=== PATIENT | male | born 1935 | race Caucasian/White ===

== ENCOUNTER 2017-01-28 17:13 | Observation (INO) ==
--- NOTE | 2017-01-28 17:29 | Emergency Department Note ---
Disposition Clinical Impression: Chest pain Qualifiers: Chest pain type: unspecified Qualified Code(s): R07.9 - Chest pain, unspecified Disposition: Admitted As Inpatient Condition: Fair Referrals: Wen Baires MD [Primary Care Provider] - Forms: ED Satisfaction Letter Time of Disposition: 18:21 Chest Pain HPI - General Chief Complaint: ED Chest Pain Stated Complaint: Chest pain/Multiple Complaints Time Seen by Provider: 01/28/17 17:22 Source: patient, family Mode of arrival: ambulatory Limitations: no limitations Vital Signs Reviewed: Yes Nursing Notes Reviewed: Yes - History of Present Illness HPI Narrative: 81-year-old male with a history of previous stent 3 in 2013 who comes in with intermittent chest pain says it'll get real heavy in his chest and then it'll get better it's been going on for last couple of days. Also states he has leg pain related to nerve damage that he's had for quite some time. Eyes any swelling or redness of the lower extremities. Pt complaint: chest pain Onset (ago): day(s) Duration: intermittent Onset: during rest Pain Location: substernal, left chest Severity scale (1-10): 6 Quality: aching, heaviness Improves with: nothing Worsens with: exertion Associated symptoms: Denies: fever, cough - Related Data Allergies Allergy/AdvReac Type Severity Reaction Status Date / Time celecoxib [From Celebrex] Allergy See Verified 01/28/17 17:18 Comments codeine Allergy See Verified 01/28/17 17:18 Comments propoxyphene Allergy See Verified 01/28/17 17:18 Comments Uglxerr-Yij-Jkj Reductase Allergy See Verified 01/28/17 17:18 Inhibitor Comments [Statins] Sulfa (Sulfonamide Allergy See Verified 01/28/17 17:18 Antibiotics) Comments All systems ED: reviewed and negative except as stated. Constitutional: Denies: fever, chills, weakness, weight change Eyes: Denies: eye pain, eye discharge, vision change ENT ED: Denies: ear pain, throat pain, dental pain, hearing loss, epistaxis, congestion, dysphagia Cardiovascular: Reports: chest pain. Denies: palpitations, dyspnea on exertion , edema, syncope Respiratory: Denies: cough, dyspnea, wheezes, hemoptysis, stridor Gastrointestinal: Denies: abdominal pain, nausea, vomiting, diarrhea, constipation, hematemesis, melena, hematochezia Genitourinary: Denies: urgency, dysuria, frequency, hematuria Musculoskeletal: Denies: back pain, neck pain, arthralgia, myalgia Integumentary: Denies: rash, abrasion, lesions Neurological: Denies: headache, weakness, numbness, paresthesias, confusion, abnormal gait, vertigo Psychiatric: Denies: anxiety, depression, suicidal thoughts, homicidal thoughts , auditory hallucinations, visual hallucinations Endocrine: Denies: fatigue Hematological/Lymphatic: Denies: easy bleeding, easy bruising Allergic/Immunologic: Denies: facial swelling, urticaria Chest Pain PMH - Past Medical History Medical history: Reports: diabetes, hyperlipidemia, hypertension, liver disease , myocardial infarction Psychiatric history: Reports: no psych history - Social History Smoking Status: Never smoker Alcohol use: Reports: none Drug use: Reports: none Physical Exam - General Limitations: no limitations General appearance: alert, in no apparent distress - Head Head exam: atraumatic, normocephalic, normal inspection - Eye Eye exam: Present: normal appearance, PERRL, EOMI - ENT ENT exam: normal exam, normal oropharynx, mucous membranes moist - Neck Neck exam: Present: normal inspection, full ROM, trachea midline - Chest Chest inspection: Present: normal inspection, symmetric chest wall rise - Respiratory Respiratory exam: Present: normal lung sounds bilaterally - Cardiovascular Cardiovascular exam: Present: regular rate, normal rhythm, normal heart sounds - Abdominal Exam Abdominal exam: Present: soft, Non-Tender. Absent: tenderness, distention, guarding, rebound, rigidity - Extremities Exam Extremities exam: Present: normal inspection, full ROM. Absent: tenderness, pedal edema - Expanded Lower Extremity Exam Neurovascular/Tendon exam: Absent: motor deficit, sensory deficit, tendon deficit Gait: observed and normal - Back Exam Back exam: Present: normal inspection, full ROM. Absent: tenderness - Neurological Exam Neurological exam: Present: alert, oriented X3 - Psychiatric Psychiatric exam: Present: normal affect, normal mood - Skin Skin exam: Present: warm, dry, intact, normal color Course - Reevaluation(s) Reevaluation #1: 81-year-old previous history of heart disease comes in complaining of intermittent chest pain for the last several days. Workup is negative here in the ER however with his risk factors whirl go ahead and admit. Time: 18:20 - Consultations Consultation #1: Discussed with , admit. Time: 18:20 Vital Signs Temperature 99.5 F 01/28/17 17:15 Pulse Rate 100 01/28/17 17:15 Respiratory Rate 20 01/28/17 17:15 Blood Pressure 146/74 01/28/17 17:15 O2 Sat by Pulse Oximetry 94 01/28/17 17:15 Temperature 99.5 F 01/28/17 17:15 Pulse Rate 99 01/28/17 17:30 Respiratory Rate 22 01/28/17 17:30 Blood Pressure 148/76 01/28/17 17:30 O2 Sat by Pulse Oximetry 94 01/28/17 17:30 Oxygen Delivery Oxygen Delivery Room Air Chest Pain - Lab Data Lab results reviewed: Yes I reviewed the patient's lab results. Result diagrams: 01/28/17 17:40 01/28/17 17:40 Lab Results 01/28/17 01/28/17 01/28/17 Range/Units 17:40 17:40 17:40 WBC 6.5 (4.3-11.1) K/mcL RBC 3.42 L (4.19-5.50) M/mcL Hgb 11.8 L (12.9-16.9) g/dL Hct 33.1 L (37.5-50.1) % MCV 96.8 (83.0-100.0) fL MCH 34.5 H (28.0-33.3) pg MCHC 35.6 H (31.6-35.5) g/dL RDW 12.6 (11.5-14.5) % Plt Count 124 L (140-400) K/mcL MPV 10.1 (9.4-12.4) fL Immature Gran % 0.2 (0-4) % Seg Neutrophils % 73.4 % Lymphocytes % 10.9 % Monocytes % 11.8 % Eosinophils % 3.1 % Basophils % 0.6 % Neutrophils # 4.7 (1.6-8.9) K/mcL Lymphocytes # 0.7 (0.6-4.6) K/mcL Monocytes # 0.8 (0.0-1.3) K/mcL Eosinophils # 0.2 (0.0-0.6) K/mcL Basophils # 0.0 (0.0-0.2) K/mcL Immature Plt Fraction 5.6 (1.1-6.1) % PT 11.8 (9.4-12.1) Seconds INR 1.1 APTT 29.0 (26.0-36.0) Seconds Sodium (136-145) mEq/L Potassium (3.5-4.5) mEq/L Chloride (98-109) mEq/L Carbon Dioxide (19-29) mEq/L BUN (8-26) mg/dL Creatinine (0.72-1.25) mg/dL Est GFR ( Amer) (> 60) Est GFR (Non-Af Amer) (> 60) BUN/Creatinine Ratio (6-26) Glucose (70-99) mg/dL Calculated Osmolality (280-300) Calcium (8.6-10.8) mg/dL Troponin I (0-0.03) ng/mL B-Natriuretic Peptide 25 (0-100) pg/mL 01/28/17 01/28/17 Range/Units 17:40 17:40 WBC (4.3-11.1) K/mcL RBC (4.19-5.50) M/mcL Hgb (12.9-16.9) g/dL Hct (37.5-50.1) % MCV (83.0-100.0) fL MCH (28.0-33.3) pg MCHC (31.6-35.5) g/dL RDW (11.5-14.5) % Plt Count (140-400) K/mcL MPV (9.4-12.4) fL Immature Gran % (0-4) % Seg Neutrophils % % Lymphocytes % % Monocytes % % Eosinophils % % Basophils % % Neutrophils # (1.6-8.9) K/mcL Lymphocytes # (0.6-4.6) K/mcL Monocytes # (0.0-1.3) K/mcL Eosinophils # (0.0-0.6) K/mcL Basophils # (0.0-0.2) K/mcL Immature Plt Fraction (1.1-6.1) % PT (9.4-12.1) Seconds INR APTT (26.0-36.0) Seconds Sodium 135 L (136-145) mEq/L Potassium 4.2 (3.5-4.5) mEq/L Chloride 100 (98-109) mEq/L Carbon Dioxide 26 (19-29) mEq/L BUN 24 (8-26) mg/dL Creatinine 1.39 H (0.72-1.25) mg/dL Est GFR ( Amer) 59 L (> 60) Est GFR (Non-Af Amer) 49 L (> 60) BUN/Creatinine Ratio 17 (6-26) Glucose 160 H (70-99) mg/dL Calculated Osmolality 287 (280-300) Calcium 9.0 (8.6-10.8) mg/dL Troponin I 0.02 (0-0.03) ng/mL B-Natriuretic Peptide (0-100) pg/mL - Radiology Data Radiology results reviewed: Yes I reviewed the patient's radiology results. Chest X-Ray 01/28/17 17:26 IMPRESSION: Perihilar airspace disease with indistinctness the pulmonary vasculature suggesting pulmonary edema. These findings are likely accentuated by low lung volumes. D/ / Sameera Dahl Cha, MD / Sameera Dahl Cha, MD Interpreting Provider: Sameera Dahl Cha, MD - EKG Data EKG attestation: Yes I reviewed and interpreted this EKG. EKG shows normal: sinus rhythm Rate: normal Rhythm: NSR Interpretation: no acute changes Heart Score - Score History: Moderately Suspicious EKG: Non Specific repolarisation Disturbance Age: Greater than 65 Risk Factors: Equal/Greater than 3 risk factor or history of atherosclerotic disease Troponin: Less than normal limit HEART Score Total: 6
[2017-01-28 17:48] LABS: Basophils % 0.6 %; Eosinophils # 0.2 K/mcL (0.0-0.6); Eosinophils % 3.1 %; Hematocrit 33.1 % (37.5-50.1); Hemoglobin 11.8 g/dL (12.9-16.9); Immature Granulocytes % 0.2 % (0-4); Immature Platelets 5.6 % (1.1-6.1); Lymphocytes # 0.7 K/mcL (0.6-4.6); Lymphocytes % 10.9 %; Mean Corpuscular HGB Conc 35.6 g/dL (31.6-35.5); Mean Corpuscular Hemoglobin 34.5 pg (28.0-33.3); Mean Corpuscular Volume 96.8 fL (83.0-100.0); Mean Platelet Volume 10.1 fL (9.4-12.4); Monocytes # 0.8 K/mcL (0.0-1.3); Monocytes % 11.8 %; Neutrophils # 4.7 K/mcL (1.6-8.9); Platelet Count 124 K/mcL (140-400); Red Blood Count 3.42 M/mcL (4.19-5.50); Red Cell Distribution Width 12.6 % (11.5-14.5); Segmented Neutrophils % 73.4 %
[2017-01-28 17:53] LABS: INR 1.1; Prothrombin Time 11.8 Seconds (9.4-12.1)
[2017-01-28 17:59] LABS: Potassium 4.2 mEq/L (3.5-4.5)
[2017-01-28] MEDS ORDERED: Naloxone 0.4 MG/ML INJ IVP PRN (19:38)
[2017-01-28] MEDS ORDERED: Ondansetron 4 MG/2 ML VIAL IVP PRN (19:38)
[2017-01-28] MEDS ORDERED: Acetaminophen 325 MG TABLET PO PRN ×2 (19:38→20:14)
[2017-01-28] MEDS ORDERED: Nitroglycerin 0.4 MG TAB.SUBL SL PRN (19:41)
[2017-01-28] MEDS ORDERED: *HR* Dextrose 50 % in Water (Syg) 50 ML SYRINGE IVP PRN (19:44)
[2017-01-28] MEDS ORDERED: D5% in Water 1,000 ML IVC PRN (19:44)
[2017-01-28] MEDS ORDERED: Dextrose Gel 15 GM PO PRN ×2 (19:44)
[2017-01-28] MEDS ORDERED: Ipratropium/Albuterol Neb 3 ML IH PRN (20:00)
--- NOTE | 2017-01-28 20:10 | Internal Med History&Physical ---
<Haim Payton - Last Filed: 01/28/17 21:03> Date of Encounter: 01/28/17 Time of Encounter: 19:15 Assessment and Plan (1) Chest pain Current visit: Yes Status: Acute Patient presents with chief complaint of chest pressure that has become progressively worse over the past several days. He reports it sometimes radiates to his right neck. Patient has history of CA in 2013 with placement of three stents. He also has cardiac risk factors of HTN, HLD, and DM. EV echocardiogram ordered. Troponins to be trended x2. Will place patient NPO after midnight for ordered nuclear pharm stress test, but will hold stress test if troponins are positive. Will consider cardiology consult based on test results. Qualifiers: Chest pain type: unspecified Qualified Code(s): R07.9 - Chest pain, unspecified (2) Pedal edema Current visit: Yes Status: Acute Patient presents with mild bilateral non-pitting pedal edema. Will continue patient's HCTZ and order fluid restriction of 1.5L daily. Monitor I&O and daily weight. (3) SOB (shortness of breath) Current visit: Yes Status: Acute Patient presents with complaint of SOB related to current chest pressure over the past several days. Supplemental O2 ordered with titration if SpO2 <92% as well as continuous SpO2 monitoring. DuoNebs Q4 PRN ordered. Monitor patient and vital signs. (4) Febrile Current visit: Yes Status: Acute Patient presents with fever upon admission. While in ED, patient's temperature was 99.5F. After admission to floor, patient's temperature was recorded at 102.2F. Tylenol 650 mg for fever/pain ordered due to patient's current renal status (GFR = 49). Blood cultures x2 and urine culture ordered stat. Currently, patient's WBC is 6.5 on admission. Will order CBC and lactic acid stat. Patient to be monitored closely. Qualifiers: Fever type: due to other condition Qualified Code(s): R50.81 - Fever presenting with conditions classified elsewhere (5) HTN (hypertension) Current visit: Yes Status: Chronic Patient presents with history of chronic hypertension. Will continue patient's Metoprolol XL and HCTZ. Monitor patient and vital signs. Qualifiers: Hypertension type: essential hypertension Qualified Code(s): I10 - Essential (primary) hypertension (6) HLD (hyperlipidemia) Current visit: Yes Status: Chronic Patient presents with history of chronic hyperlipidemia. Patient reports he is allergic to all statin drugs and is currently not taking any statin medications. Will order lipid panel. Qualifiers: Hyperlipidemia type: pure hypercholesterolemia Qualified Code(s): E78.00 - Pure hypercholesterolemia, unspecified; E78.0 - Pure hypercholesterolemia (7) Diabetes Current visit: Yes Status: Chronic Patient presents with history of chronic diabetes that is controlled by diet and oral hyperglycemics. Blood glucose monitoring ACHS. Will hold patient's oral hyperglycemic medication and order low-dose insulin correction dosing. A1C ordered. Qualifiers: Diabetes mellitus type: type 2 Diabetes mellitus complication status: with neurologic complications Diabetes mellitus complication detail: with unspecified neuropathy Diabetes mellitus intermediate designer insulin use: without intermediate designer use Qualified Code(s): E11.40 - Type 2 diabetes mellitus with diabetic neuropathy, unspecified (8) Prostate hypertrophy Current visit: Yes Status: Acute Patient has history of chronic prostate hypertrophy and issues. He reports he had a previous procedure done but can't recall what the procedure was. He also states that he now experiences urinary urgency and incontinence. Patient states he is scheduled to see Dr. Escobar in three weeks. Patient instructed to keep his appointment and discuss the urinary issues with Dr. Escobar. Will monitor patient for urinary incontinence while inpatient. (9) DVT prophylaxis Current visit: Yes Status: Acute Patient to be placed on DVT prophylaxis due to admission protocol and current bedrest status. Heparin 5,000 units SQ Q8 ordered. Internal Medicine - H&P: HPI Chief complaint: Chest pressure Admitted From: Emergency Dept Plans for Post Hospital Care: Home History of present illness: Mr. Dudley is a 81 year old male who presents from the ED with chief complaint of chest pressure that has been occurring for the past several weeks and has become progressively worse over the past several days. Patient reports the feeling as chest pressure with some radiation to his right neck. Mr. Dudley reports he has some SOB and pedal edema which he was taking Lasix for but stopped after it caused GI issues for him. He states he let his PCP know about stopping the medication. Patient denies any recent illness, fever, chills , nausea, vomiting, diarrhea, hematemesis, melena, hematochezia, generalized weakness, dizziness, or lightheadedness. Patient has a history of diabetes controlled by oral hyperglycemics, HLD, HTN, and CA in 2013 with placement of three stents. Patient currently has mild SOB with bilateral non-pitting edema. He also reports sciatic pain from hips down to his feet which may also be neuropathy from his diabetes. He states he has prostate problems/urinary urgency and incontinence and will see Dr. Escobar in three weeks for scheduled appointment. Patient is at moderate risk for cardiac event and will be placed as observation status with orders for continuous cardiac telemetry, supplemental O2 and SpO2 monitoring, echocardiogram, troponin trending x2, and nuclear pharm stress test for the a.m. unless troponins are positive. Mr. Nolasco is to be NPO after midnight for possible stress test. After this, will follow cardiac diet with fluid restriction of 1.5L daily. Patient is currently febrile without leukocytosis, so blood and urine cultures ordered with Tylenol PRN for fever due to patient's renal function. Mr. Dudley to be falls precautions/[id number]-phfp-[id number]/bed rest with bathroom privileges due to back/ leg pain and increased risk for falls. Patient to be monitored closely. Time spent with patient >40 minutes. Past Med Surg Social Fam HX - Past Medical History Source: patient Medical history: diabetes (Controlled with oral hyperglycemics), hyperlipidemia , hypertension, myocardial infarction (2013 with placement of 3 stents) Psychiatric history: no psych history - Past Surgical History Surgical History: cholecystectomy, hip replacement, knee replacement - Social History Smoking Status: Never smoker Smokeless Tobacco Status: No Alcohol use: none Drug use: none Occupational status: retired Current living situation: Home, With Family Activity Level: Independent ambulation Recent Out of Country Travel Within the Last 8 Weeks: No Exposure or Possible Exposure to Illness During Travel: No - Family History Father Race: Family Member Ethnicity: Non- Living Status: Age at : 87 Cause of : Stroke Hx Family Cardiac Disorders: Yes (CVA) Mother Race: Family Member Ethnicity: Non- Living Status: Age at : 82 Cause of : CA Hx Family Cardiac Disorders: Yes (Angina) Hx Family Endocrine Disorder: Yes (DM) Brother Race: Family Member Ethnicity: Non- Living Status: Still Living Hx Family Genitourinary Disorders: Yes (Prostate issues) Internal Medicine - H&P: Meds Albuterol Sulfate [Ventolin Hfa] 2 puff IH Q4H PRN 01/28/17 [History] Aspirin Enteric Coated [Aspirin EC] 81 mg PO DAILY 01/28/17 [History] Clopidogrel [Plavix] 75 mg PO DAILY 01/28/17 [History] Cyanocobalamin (Vitamin B-12) [Vitamin B12] 2,000 mcg PO DAILY 01/28/17 [History ] Flaxseed Oil [[place]-3 Flaxseed Oil] 1,000 mg PO DAILY 01/28/17 [History] Isosorbide MONOnitrate (24 HR) [Imdur] 60 mg PO DAILY 01/28/17 [History] Losartan/Hydrochlorothiazide [Hyzaar 100-12.5 Tablet] 1 each PO DAILY 01/28/17 [ History] Meclizine HCl [Verticalm] 25 mg PO DAILY PRN 01/28/17 [History] Metoprolol XL (24 HR) Succ [Toprol XL] 25 mg PO DAILY 01/28/17 [History] Nitroglycerin [Nitrostat] 0.4 mg SL Q5M PRN 01/28/17 [History] [place]-3/Dha/Epa/Fish Oil [Fish Oil 1,360 mg Softgel] 1 each PO DAILY 01/28/17 [ History] Potassium Chloride [K-Tab ER] 10 meq PO BID 01/28/17 [History] Saw/Vit E/Sod [place]/Lyc/Beta/Pyg [Prostate Health Caplet] 1 each PO DAILY [History] Vit A/C/E AC/Znox/Cupric Oxide [Eye Vitamin-Minerals Tablet] 1 each PO DAILY 10/12 [History] glipiZIDE [Glucotrol] 5 mg PO BIDWM 01/28/17 [History] Allergies celecoxib [From Celebrex] Allergy (Verified 01/28/17 17:18) See Comments codeine Allergy (Verified 01/28/17 17:18) See Comments propoxyphene Allergy (Verified 01/28/17 17:18) See Comments Olvgokg-Vko-Hbl Reductase Inhibitor [Statins] Allergy (Verified 01/28/17 17:18) See Comments Sulfa (Sulfonamide Antibiotics) Allergy (Verified 01/28/17 17:18) See Comments All Systems PM: A 10-system review of systems was performed and is negative for pertinent findings except as documented above in the HPI. - Constitutional Constitutional: no chills, no fever(s), no night sweats - EENT Eyes: no change in vision, no discharge, no pain, no photophobia Ears: no ear discharge, no ear pain, no tinnitus Nose, mouth and throat: no dysphagia, no nasal discharge, no neck pain, no sore throat - Breasts Breasts: as per HPI - Cardiovascular Cardiovascular ROS IM: as per HPI, chest pain (Describes as pressure), dyspnea, edema (Mild bilateral and non-pitting pedal edema) - Respiratory Respiratory: as per HPI, cough, dyspnea - Gastrointestinal Gastrointestinal: no abdominal pain, no diarrhea, no hematemesis, no hematochezia, no melena, no nausea, no vomiting - Genitourinary Genitourinary ROS male: as per HPI, urinary incontinence, urinary urgency - Musculoskeletal Musculoskeletal ROS IM: no numbness, no tingling - Integumentary Integumentary IM: no rash, no unusual bruising - Neurological Neurological ROS: no confusion, no convulsions, no focal weakness, no numbness, no tingling, no tremor(s) - Psychiatric Psychiatric: as per HPI - Endocrine Endocrine IM: as per HPI - Hematologic/Lymphatic Hematologic/Lymphatic: no easy bruising - Allergic/Immunologic Allergic/Immunologic: as per HPI - Constitutional Vitals: Temp Pulse Resp BP Pulse Ox 99.5 F 95 20 146/70 92 01/28/17 17:15 01/28/17 18:30 01/28/17 18:47 01/28/17 18:47 01/28/17 18:30 General appearance: Present: cooperative, A&O X 3, pleasant, no acute distress, obese, answers questions appropriately - Head Head exam: Present: atraumatic, normocephalic - Eye Eye exam: Present: PERRL, conjuntiva pink, sclera anicteric Pupils: Present: PERRL - ENT ENT exam: Present: normal exam, normal external ear exam - Neck Neck exam general surgery: Present: supple, trachea midline. Absent: lymphadenopathy - Respiratory Respiratory exam: Present: CTAB. Absent: accessory muscle use, rales, rhonchi, wheezes - Cardiovascular Cardiovascular exam: Present: RRR, +S1, +S2. Absent: diastolic murmur, gallop, rubs, systolic murmur - GI/Abdominal GI/Abdominal exam: Present: normal bowel sounds, soft, no peritoneal signs. Absent: distended, tenderness - Rectal Rectal exam: Present: deferred - Additional comments: exam deferred. - Extremities Exam Extremities exam: Present: normal inspection, pedal edema, warm, radial pulses palpable and symetrical - Back Exam Additional comments: Patient has shooting pain from his lower back to his feet when sitting up for examination. - Neurological Exam Neurological exam: Present: CN II-XII intact, oriented X3, no focal deficits. Absent: pronater drift, facial droop, speech deficit - Psychiatric Psychiatric exam: Present: normal affect, normal mood - Skin Skin exam: Present: dry, intact Internal Med - H&P Results - Labs CBC & Chem 7: 01/28/17 17:40 01/28/17 17:40 - EKG Data EKG shows normal: sinus rhythm - EKG Data Prior EKG available for review: yes When compared to previous EKG: there is no significant change EKG comments: 01/28/17 20:32 EKG dated 11/18/13 shows sinus bradycardia, normal ECG except for rate. EKG dated 01/28/17 shows sinus rhythm and normal ECG. - Diagnostic Studies Chest x-ray Additional comments: Impressions Chest X-Ray 01/28/17 17:26 IMPRESSION: Perihilar airspace disease with indistinctness the pulmonary vasculature suggesting pulmonary edema. These findings are likely accentuated by low lung volumes. D/ / Sameera Dahl Cha, MD / Sameera Dahl Cha, MD Interpreting Provider: Sameera Dahl Cha, MD <Deandra Medina - Last Filed: 01/29/17 04:55> Date of Encounter: 01/28/17 Time of Encounter: 23:00 Internal Medicine - H&P: HPI History of present illness: Mr. Dudley is a 81 year old male All Systems PM: A 10-system review of systems was performed and is negative for pertinent findings except as documented above in the HPI. - Constitutional Vitals: Temp Pulse Resp BP Pulse Ox 98.4 F 53 16 125/67 100 01/29/17 02:47 01/29/17 02:47 01/29/17 02:47 01/29/17 02:47 01/29/17 02:47 Internal Med - H&P Results - Labs CBC & Chem 7: 01/28/17 21:09 01/28/17 17:40 Labs: Short CBC 01/28/17 Range/Units 21:09 WBC 6.5 (4.3-11.1) K/mcL Hgb 11.3 L (12.9-16.9) g/dL Hct 31.6 L (37.5-50.1) % Plt Count 112 L (140-400) K/mcL Neutrophils # 4.7 (1.6-8.9) K/mcL Cardiac Enzymes 01/28/17 Range/Units 23:33 Troponin I 0.00 (0-0.03) ng/mL Urine 01/28/17 Range/Units 20:15 Urine Color Yellow (Yellow) Urine Clarity Clear (Clear) Urine pH 6.5 (5.0-8.0) pH Units Ur Specific [place] 1.019 (1.010-1.025) Urine Protein 30 H (Neg-Trace) mg/dL Urine Glucose (UA) Normal (Normal) mg/dL - Attending Attestation I examined this patient and my medical decision-making was reviewed with the ETIQUETTE COACH/PA/Advanced Practice Nurse/Resident Physician. I agree with the documented findings, disposition and treatment plan as described except to the extent set forth below. Monitor serial TNI Nuclear stress test in am follow up 2D echo consider cardiology evaluation if above test are positive for any acute cardiac etiology
[2017-01-28 20:34] LABS: Bilirubin,Urine Negative (Negative); Blood,Urine Small (Negative); Clarity,Urine Clear (Clear); Color,Urine Yellow (Yellow); Glucose,Urine (UA) Normal (Normal); Ketones,Urine Negative (Negative); Leukocyte Esterase,Urine Negative (Negative); Nitrite,Urine Negative (Negative); PH,Urine 6.5 pH Units (5.0-8.0); Protein,Urine 30 mg/dL (Neg-Trace); Specific Gravity,Urine 1.019 (1.010-1.025); Urobilinogen,Urine Normal (Normal)
[2017-01-28 20:37] LABS: Bacteria,Urine None Seen per hpf (None-Few); Hyaline Casts,Urine None Seen per lpf (None-Few); Squamous Epithelial Cell,Urine Few per lpf (None-Few); WBC,Urine 0-3 per hpf (0-3)
[2017-01-28] MEDS ORDERED: Insulin LISPRO 300 UNITS/3 ML VIAL SQ SCH (21:00)
[2017-01-28] MEDS: *HR* Heparin 5,000 UNIT/ML VIAL SQ SCH (21:05)
[2017-01-28 21:20] LABS: Basophils % 0.6 %; Eosinophils # 0.2 K/mcL (0.0-0.6); Eosinophils % 2.5 %; Hematocrit 31.6 % (37.5-50.1); Hemoglobin 11.3 g/dL (12.9-16.9); Immature Granulocytes % 0.3 % (0-4); Lymphocytes # 0.7 K/mcL (0.6-4.6); Mean Corpuscular HGB Conc 35.8 g/dL (31.6-35.5); Mean Corpuscular Hemoglobin 34.5 pg (28.0-33.3); Mean Corpuscular Volume 96.3 fL (83.0-100.0); Mean Platelet Volume 10.3 fL (9.4-12.4); Monocytes # 0.8 K/mcL (0.0-1.3); Neutrophils # 4.7 K/mcL (1.6-8.9); Platelet Count 112 K/mcL (140-400); Red Blood Count 3.28 M/mcL (4.19-5.50); Red Cell Distribution Width 12.5 % (11.5-14.5); Segmented Neutrophils % 72.6 %
[2017-01-29] MEDS: *HR* Heparin 5,000 UNIT/ML VIAL SQ SCH ×2 (05:48→14:53)
[2017-01-29] MEDS ORDERED: Regadenoson 0.4 MG/5 ML SYRINGE IVP ONE (06:14)
[2017-01-29 06:58] LABS: Calcium 8.9 mg/dL (8.6-10.8); Chol/HDL Ratio 6.1 (0-4.9); Magnesium 1.8 mg/dL (1.6-2.6); Potassium 3.8 mEq/L (3.5-4.5)
[2017-01-29 07:05] LABS: Basophils % 0.5 %; Eosinophils # 0.2 K/mcL (0.0-0.6); Eosinophils % 5.5 %; Hematocrit 33.6 % (37.5-50.1); Hemoglobin 11.7 g/dL (12.9-16.9); Immature Granulocytes % 0.2 % (0-4); Lymphocytes # 0.8 K/mcL (0.6-4.6); Lymphocytes % 19.2 %; Mean Corpuscular HGB Conc 34.8 g/dL (31.6-35.5); Mean Corpuscular Hemoglobin 34.3 pg (28.0-33.3); Mean Corpuscular Volume 98.5 fL (83.0-100.0); Mean Platelet Volume 11.1 fL (9.4-12.4); Monocytes # 0.7 K/mcL (0.0-1.3); Monocytes % 16.1 %; Neutrophils # 2.4 K/mcL (1.6-8.9); Platelet Count 116 K/mcL (140-400); Red Blood Count 3.41 M/mcL (4.19-5.50); Red Cell Distribution Width 12.8 % (11.5-14.5); Segmented Neutrophils % 58.5 %
[2017-01-29] MEDS ORDERED: Isosorbide MONOnitrate (24 HR) 60 MG TAB.ER.24H PO SCH (09:00)
[2017-01-29] MEDS ORDERED: VIT E PO SCH (09:00)
[2017-01-29] MEDS ORDERED: hydroCHLOROthiazide 25 MG TABLET PO SCH (09:00)
[2017-01-29] MEDS ORDERED: SAW PO SCH (09:00)
[2017-01-29] MEDS ORDERED: Flaxseed Oil [Omega-3 Flaxseed Oil] 1,000 MG PO SCH (09:00)
[2017-01-29] MEDS ORDERED: LYC PO SCH (09:00)
[2017-01-29] MEDS ORDERED: Aspirin Enteric Coated 81 MG Tablet PO SCH (09:00)
[2017-01-29] MEDS ORDERED: OMEGA PO SCH (09:00)
[2017-01-29] MEDS ORDERED: SOD SEL PO SCH (09:00)
[2017-01-29] MEDS ORDERED: PYG PO SCH (09:00)
[2017-01-29] MEDS ORDERED: Metoprolol XL (24 HR) Succ 25 MG TAB.ER.24H PO SCH (09:00)
[2017-01-29] MEDS ORDERED: BETA PO SCH (09:00)
[2017-01-29] MEDS ORDERED: DHA PO SCH (09:00)
[2017-01-29] MEDS ORDERED: EPA PO SCH (09:00)
[2017-01-29] MEDS ORDERED: Pantoprazole 40 MG VIAL IVP SCH (09:00)
[2017-01-29] MEDS ORDERED: Cyanocobalamin (B-12) 1,000 MCG TABLET PO SCH (09:00)
[2017-01-29] MEDS ORDERED: Multivit/Ca/Min/Fe/FA 1 TAB TABLET PO SCH (09:00)
[2017-01-29] MEDS ORDERED: FISH OIL PO SCH (09:00)
[2017-01-29] MEDS: Insulin LISPRO 300 UNITS/3 ML VIAL SQ SCH (12:11)
--- NOTE | 2017-01-29 12:49 | Nuclear Medicine Stress Report ---
Regadenoson Nuclear Stress Name: Nacho Dudley Date of Study: 01/29/2017 Date: 1935 Ht: Medical Record#: [id number] Age: 81 Wt: Gender: Male Order #: [id number] Location: [facility] Room: [facility] Supervising Provider: Talha Lara CNP Reading Physician: Darren Carbajal DO, FACC, FASIL Ordering Physician: Mylene Martinez CNP Primary Care Physician: Wen Baires MD Stress Technologist: Michelle Benavides RRT Drywall Finisher Foreman: Yuri Ga Indications: Chest Pain Impression: Pharmacologic stress ECG is negative for ischemia at level of heart rate achieved. Gated EF = 61%. Small sized, mild intensity, primarily fixed basal inferoseptal defect. Wall motion appears normal. These findings are consistent with artifact. Perfusion imaging was negative for ischemia or infarct. Clinical correlation suggested. History: Hypertension Hypercholesteremia Prior PCI Stress Test Summary: Stress Test Type: Pharmacologic Regadenoson 0.4mg/5ml given IV Baseline Information: Initial Heart Rate: 56 Blood Pressure: 112/70 Stress Information: Test Terminated Due to (primary): As per protocol Maximum Blood Pressure: 110/64 Maximum Heart Rate: 84 Percent Maximum Heart Rate Achieved: 61 Double Product: 9240 METS Reached: 1 Symptoms: No chest symptoms Nuclear Summary: SPECT myocardial perfusion imaging using Tc99m Sestamibi given intravenously was performed at rest and following cardiac stress testing. The resting images were obtained following initial dose of 11.2 mCi. Following stress an additional dose of 35.6 mCi was given at peak exercise or 30 seconds post regadenoson infusion. Medication Given: Time Medication Dose Units Route Findings: Stress Note * Resting ECG demonstrated normal sinus rhythm. * No baseline arrhythmias were noted. * Pharmacologic stress ECG is negative for ischemia at level of heart rate achieved. * No arrhythmias were noted during stress. Few PVCs in recovery. * Patient had no chest pain during stress. Hemodynamic responses * Normal hemodynamic responses to pharmacologic stress. Study Quality * Study quality is average. Gated EF % * Gated EF = 61%. Left Ventricle * The left ventricle is not dilated. * LVEDV = 99 mL. Inferior Perfusion Rest * The basal inferoseptal segment shows a mild reduction in perfusion. Inferior Perfusion Stress * The basal inferoseptal segment shows a mild reduction in perfusion. TID * No evidence of transient ischemic dilatation. TID ratio * TID ratio = 0.89. Lung Uptake * There is no evidence of increase lung uptake. Updated by Darren Carbajal DO, FACShawna, FLOYD, FITO on 01/29/2017 12:41:03 PM electronically signed on 01/29/2017 12:41:28 PM with status of Final
--- NOTE | 2017-01-29 15:19 | Discharge Summary ---
Date of Encounter: 01/29/17 Time of Encounter: 15:17 - Discharge Diagnosis (1) CAD (coronary artery disease) Priority: Secondary Status: Acute Qualifiers: Qualified Code(s): I25.10 - Atherosclerotic heart disease of [place] coronary artery without angina pectoris (2) Chest pain Priority: Primary Status: Acute Qualifiers: Chest pain type: unspecified Qualified Code(s): R07.9 - Chest pain, unspecified (3) HTN (hypertension) Priority: Secondary Status: Chronic Qualifiers: Hypertension type: essential hypertension Qualified Code(s): I10 - Essential (primary) hypertension (4) Diabetes Priority: Secondary Status: Chronic Qualifiers: Diabetes mellitus type: type 2 Diabetes mellitus complication detail: with unspecified neuropathy 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 insulin use: without mcfp use Qualified Code(s): E11.40 - Type 2 diabetes mellitus with diabetic neuropathy, unspecified - Discharge Medications Home Medications: Albuterol Sulfate [Ventolin Hfa] 2 puff IH Q4H PRN 01/28/17 [History] Aspirin Enteric Coated [Aspirin EC] 81 mg PO DAILY 01/28/17 [History] Clopidogrel [Plavix] 75 mg PO DAILY 01/28/17 [History] Cyanocobalamin (Vitamin B-12) [Vitamin B12] 2,000 mcg PO DAILY 01/28/17 [History ] Flaxseed Oil [[place]-3 Flaxseed Oil] 1,000 mg PO DAILY 01/28/17 [History] Isosorbide MONOnitrate (24 HR) [Imdur] 60 mg PO DAILY 01/28/17 [History] Losartan/Hydrochlorothiazide [Hyzaar 100-12.5 Tablet] 1 each PO DAILY 01/28/17 [ History] Meclizine HCl [Verticalm] 25 mg PO DAILY PRN 01/28/17 [History] Metoprolol XL (24 HR) Succ [Toprol Xl] 25 mg PO DAILY 01/28/17 [History] Nitroglycerin [Nitrostat] 0.4 mg SL Q5M PRN 01/28/17 [History] [place]-3/Dha/Epa/Fish Oil [Fish Oil 1,360 mg Softgel] 1 each PO DAILY 01/28/17 [ History] Potassium Chloride [K-Tab ER] 10 meq PO BID 01/28/17 [History] Saw/Vit E/Sod [place]/Lyc/Beta/Pyg [Prostate Health Caplet] 1 each PO DAILY [History] Vit A/C/E AC/Znox/Cupric Oxide [Eye Vitamin-Minerals Tablet] 1 each PO DAILY 10/12 [History] glipiZIDE [Glucotrol] 5 mg PO BIDWM 01/28/17 [History] Allergies/Adverse Reactions: Allergies celecoxib [From Celebrex] Allergy (Verified 01/28/17 17:18) See Comments codeine Allergy (Verified 01/28/17 17:18) See Comments propoxyphene Allergy (Verified 01/28/17 17:18) See Comments Sgxoiqh-Wzm-Lxv Reductase Inhibitor [Statins] Allergy (Verified 01/28/17 17:18) See Comments Sulfa (Sulfonamide Antibiotics) Allergy (Verified 01/28/17 17:18) See Comments Procedures/tests Complete & Pending: Procedures Performed prior 72 hours Category Date Time Status NM jerri perf SPECT multi [NM] Routine Exams 01/28/17 19:54 Taken EV echocardiogram Routine Y 01/29/17 19:46 Completed SP pharm nuclear stress Routine Y 01/28/17 19:53 Completed Date of admission: 01/28/17 18:39 Primary care physician: Wen Baires MD Discharging clinician: Rohan Mancilla Anticipated date of discharge: 01/29/17 - Patient Status Disposition: Home, Self-Care Overall status at discharge: patient is back to baseline - Discharge Instructions Follow Up With: Wen Baires MD [Primary Care Provider] - - Diet and Activity Activity: resume usual activities as tolerated Diet: advance to your usual diet Hospital course: Mr. Dudley is a 81 year old male admitted for chest pain. Patient was ruled out for PR with the help of negative cardiac enzymes and EKG. An echocardiogram and stress Myoview was ordered. Both reported negative and echocardiogram showed normal LV systolic function with EF of 60% without any significant valvular abnormality. Patient is asymptomatic at this point and can be discharged at home medication to follow with family doctor next week. - Time Spent with Patient Total time spent providing and/or coordinating discharge services: Greater than 30 minutes - Constitutional Vitals: Temp Pulse Resp BP Pulse Ox 98.6 F 70 16 167/80 95 01/29/17 11:58 01/29/17 11:58 01/29/17 11:58 01/29/17 11:58 01/29/17 11:58 General appearance: Present: cooperative, A&O X 3, pleasant, no acute distress, obese, answers questions appropriately - Head Head exam: Present: atraumatic, normocephalic - Eye Eye exam: Present: PERRL, conjuntiva pink, sclera anicteric Pupils: Present: PERRL - Neck Neck exam general surgery: Present: supple, trachea midline. Absent: lymphadenopathy - Respiratory Respiratory exam: Present: CTAB. Absent: accessory muscle use, rales, rhonchi, wheezes - Cardiovascular Cardiovascular exam: Present: RRR, +S1, +S2. Absent: diastolic murmur, gallop, rubs, systolic murmur - GI/Abdominal GI/Abdominal exam: Present: normal bowel sounds, soft, no peritoneal signs. Absent: distended, tenderness - Extremities Exam Extremities exam: Present: warm, radial pulses palpable and symetrical. Absent : calf tenderness, cyanotic, pedal edema - Neurological Exam Neurological exam: Present: CN II-XII intact, oriented X3, no focal deficits. Absent: pronater drift, facial droop, speech deficit - Skin Skin exam: Present: dry, intact
[2017-01-29 15:42] VITALS: BP 161/76
--- NOTE | 2017-01-30 13:09 | Electrocardiograph Report ---
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
== END 2017-01-29 16:40 | disposition home or self-care (01) ==
LOC: EMEROO 17:13 → 3BNU 17:13
PROVIDERS: ADMIT Nurse Practitioner Family; ATTEND Nurse Practitioner Family

== ENCOUNTER 2017-02-01 16:57 | Observation (INO) ==
[2017-02-01 21:13] LABS: Bilirubin,Urine Negative (Negative); Blood,Urine Trace (Negative); Clarity,Urine Clear (Clear); Color,Urine Yellow (Yellow); Glucose,Urine (UA) Normal (Normal); Ketones,Urine Negative (Negative); Leukocyte Esterase,Urine Negative (Negative); Nitrite,Urine Negative (Negative); Protein,Urine Trace mg/dL (Neg-Trace); Specific Gravity,Urine 1.021 (1.010-1.025); Urobilinogen,Urine Normal (Normal)
[2017-02-01 21:17] LABS: Basophils % 0.5 %; Eosinophils # 0.1 K/mcL (0.0-0.6); Hemoglobin 11.4 g/dL (12.9-16.9); Immature Granulocytes % 0.2 % (0-4); Lymphocytes # 0.7 K/mcL (0.6-4.6); Mean Corpuscular HGB Conc 35.6 g/dL (31.6-35.5); Mean Corpuscular Volume 98.2 fL (83.0-100.0); Mean Platelet Volume 10.3 fL (9.4-12.4); Monocytes # 0.6 K/mcL (0.0-1.3); Monocytes % 9.4 %; Platelet Count 134 K/mcL (140-400); Red Blood Count 3.26 M/mcL (4.19-5.50); Red Cell Distribution Width 12.6 % (11.5-14.5); Segmented Neutrophils % 76.9 %
[2017-02-01 21:20] LABS: Bacteria,Urine None Seen per hpf (None-Few); Hyaline Casts,Urine None Seen per lpf (None-Few); Squamous Epithelial Cell,Urine None Seen per lpf (None-Few); WBC,Urine 0-3 per hpf (0-3)
[2017-02-01 21:23] LABS: INR 1.1; Prothrombin Time 11.7 Seconds (9.4-12.1)
[2017-02-01 21:26] LABS: BUN/Creatinine Ratio 18 (6-26); Blood Urea Nitrogen 24 mg/dL (8-26); Calcium 8.8 mg/dL (8.6-10.8); Carbon Dioxide 26 mEq/L (19-29); Chloride 103 mEq/L (98-109); Glucose 150 mg/dL (70-99); Osmolality,Calculated 291 (280-300); Sodium 137 mEq/L (136-145); eGFR For African Americans > 60 (> 60); eGFR For Non-African Americans 50 (> 60)
[2017-02-01 21:33] LABS: Activated Partial Thrombo Time 27.9 Seconds (26.0-36.0)
--- NOTE | 2017-02-01 23:01 | Emergency Department Note ---
Disposition Clinical Impression: Chest pain Qualifiers: Chest pain type: unspecified Qualified Code(s): R07.9 - Chest pain, unspecified Disposition: Admitted As Inpatient Condition: Good Time of Disposition: 23:02 General Adult HPI - General Chief complaint: ED General Medical Stated complaint: Cold chills,don't feel right Time Seen by Provider: 02/01/17 19:35 Source: patient, family Mode of arrival: ambulatory Limitations: no limitations Nursing Notes Reviewed: Yes Vital Signs Reviewed: Yes - History of Present Illness HPI Narrative: 81-year-old male presents with concerns of chills, generalized malaise, weakness and intermittent chest pressure. Patient has been evaluated multiple times over the past week for syncope and chest pain. On his last admission to the hospital he had possible ST elevations of the inferior leads, he was almost taken for emergent heart catheterization however his symptoms improved and he did not have elevation of his troponins. He was offered a left-sided cardiac catheterization for diagnostic and possible therapeutic benefit however after discussion the risks and benefits the patient declined and wished to return home. Patient states his symptoms returned within 24 hours after leaving the hospital. He describes chest pressure which does not radiate however he becomes increasingly weak and fatigued. Patient denies vomiting, diarrhea, rash. Denies recent trauma. He does describe his abdomen as feeling bloated mildly tender. Ulcer reports having increased urinary urgency however denies dysuria or hematuria. Pain Scale: 0 - Related Data Home Medications Medication Instructions Recorded Confirmed Albuterol Sulfate [Ventolin Hfa] 2 puff IH Q4H PRN 01/28/17 02/02/17 Aspirin Enteric Coated [Aspirin EC] 81 mg PO DAILY 01/28/17 02/02/17 Clopidogrel [Plavix] 75 mg PO DAILY 01/28/17 02/02/17 Cyanocobalamin (Vitamin B-12) 2,000 mcg PO DAILY 01/28/17 02/02/17 [Vitamin B12] Flaxseed Oil [[place]-3 Flaxseed Oil] 1,000 mg PO DAILY 01/28/17 02/02/17 Isosorbide MONOnitrate (24 HR) 60 mg PO DAILY 01/28/17 02/02/17 [Imdur] Losartan/Hydrochlorothiazide 1 tab PO DAILY 01/28/17 02/02/17 [Hyzaar 100-12.5 Tablet] Meclizine HCl [Verticalm] 25 mg PO DAILY PRN 01/28/17 02/02/17 Metoprolol XL (24 HR) Succ [Toprol 25 mg PO DAILY 01/28/17 02/02/17 Xl] Nitroglycerin [Nitrostat] 0.4 mg SL Q5M PRN 01/28/17 02/02/17 [place]-3/Dha/Epa/Fish Oil [Fish Oil 1 cap PO DAILY 01/28/17 02/02/17 1,360 mg Softgel] Potassium Chloride [K-Tab ER] 10 meq PO BID 01/28/17 02/02/17 Saw/Vit E/Sod [place]/Lyc/Beta/Pyg 1 tab PO DAILY 01/28/17 02/02/17 [Prostate Health Caplet] Vit A/C/E AC/Znox/Cupric Oxide 1 tab PO DAILY 01/28/17 02/02/17 [Eye Vitamin-Minerals Tablet] glipiZIDE [Glucotrol] 5 mg PO BIDWM 01/28/17 02/02/17 Furosemide [Lasix] 20 mg PO DAILY 01/30/17 02/02/17 Allergies Allergy/AdvReac Type Severity Reaction Status Date / Time celecoxib [From Celebrex] Allergy Unknown See Verified 02/02/17 12:56 Comments codeine Allergy Unknown See Verified 02/02/17 12:56 Comments propoxyphene Allergy Unknown See Verified 02/02/17 12:56 Comments Sulfa (Sulfonamide Allergy Unknown See Verified 02/02/17 12:56 Antibiotics) Comments Uypgdhs-Wbl-Lpb Reductase AdvReac Muscle Pain Verified 02/02/17 12:56 Inhibitor [Statins] All systems ED: reviewed and negative except as stated. Constitutional: Reports: weakness. Denies: fever, chills Cardiovascular: Reports: chest pain Respiratory: Denies: cough, dyspnea, wheezes Past Medical History - Past Medical History Attestation: Yes The following information was validated with the patient. Source: patient Medical history: Reports: diabetes, hyperlipidemia, hypertension, myocardial infarction Surgical history: Reports: cholecystectomy, hip replacement, knee replacement Psychiatric history: Reports: no psych history - Social History Smoking Status: Never smoker Smokeless Tobacco Status: No Alcohol use: Reports: none Drug use: Reports: none Physical Exam General: Alert and in no acute distress Skin: Warm, dry, intact Head: Normocephalic and atraumatic Neck: Supple, trachea midline and no tenderness Cardiovascular: RRR, no murmur, normal perfusion Respiratory: CTAB, no wheezing, cough, or respiratory distress Musculoskeletal: Normal strength, no tenderness, swelling or deformity GI: Soft, nontender, nondistended. Bowel sounds present Neuro: A&O to person, place, time and situation. No focal deficits noted on exam Psychiatric: cooperative and appropriate mood and affect. - General Limitations: no limitations General appearance: alert, in no apparent distress Course Vital Signs Temperature 99.5 F 02/01/17 17:03 Pulse Rate 80 02/01/17 17:03 Respiratory Rate 18 02/01/17 17:03 Blood Pressure 169/74 02/01/17 17:03 O2 Sat by Pulse Oximetry 94 02/01/17 17:03 Temperature 99.0 F 02/02/17 19:27 Pulse Rate 77 02/02/17 19:27 Respiratory Rate 16 02/02/17 19:27 Blood Pressure 151/69 02/02/17 19:27 O2 Sat by Pulse Oximetry 94 02/02/17 19:27 Oxygen Delivery Oxygen Delivery Room Air Medical Decision Making - MDM Narrative Medical decision making narrative: I spoke with Dr. Treviño who agreed with plan for admission to the hospital secondary to patient's recurrent chest pain. - Medical Records Medical records reviewed: Yes I reviewed the patient's medical records. - Lab Data Lab results reviewed: Yes I reviewed the patient's lab results. Result diagrams: 02/02/17 08:45 02/02/17 08:45 Lab Results 02/01/17 02/01/17 02/01/17 Range/Units 21:00 21:08 21:08 WBC 6.5 (4.3-11.1) K/mcL RBC 3.26 L (4.19-5.50) M/mcL Hgb 11.4 L (12.9-16.9) g/dL Hct 32.0 L (37.5-50.1) % MCV 98.2 (83.0-100.0) fL MCH 35.0 H (28.0-33.3) pg MCHC 35.6 H (31.6-35.5) g/dL RDW 12.6 (11.5-14.5) % Plt Count 134 L (140-400) K/mcL MPV 10.3 (9.4-12.4) fL Immature Gran % 0.2 (0-4) % Seg Neutrophils % 76.9 % Lymphocytes % 11.0 % Monocytes % 9.4 % Eosinophils % 2.0 % Basophils % 0.5 % Neutrophils # 5.0 (1.6-8.9) K/mcL Lymphocytes # 0.7 (0.6-4.6) K/mcL Monocytes # 0.6 (0.0-1.3) K/mcL Eosinophils # 0.1 (0.0-0.6) K/mcL Basophils # 0.0 (0.0-0.2) K/mcL PT 11.7 (9.4-12.1) Seconds INR 1.1 APTT 27.9 D (26.0-36.0) Seconds Sodium (136-145) mEq/L Potassium (3.5-4.5) mEq/L Chloride (98-109) mEq/L Carbon Dioxide (19-29) mEq/L BUN (8-26) mg/dL Creatinine (0.72-1.25) mg/dL Est GFR ( Amer) (> 60) Est GFR (Non-Af Amer) (> 60) BUN/Creatinine Ratio (6-26) Glucose (70-99) mg/dL Calculated Osmolality (280-300) Calcium (8.6-10.8) mg/dL Troponin I (0-0.03) ng/mL Urine Color Yellow (Yellow) Urine Clarity Clear (Clear) Urine pH 6.0 (5.0-8.0) pH Units Ur Specific [place] 1.021 (1.010-1.025) Urine Protein Trace (Neg-Trace) mg/dL Urine Glucose (UA) Normal (Normal) mg/dL Urine Ketones Negative (Negative) mg/dL Urine Blood Trace H (Negative) Urine Nitrite Negative (Negative) Urine Bilirubin Negative (Negative) Urine Urobilinogen Normal (Normal) mg/dL Ur Leukocyte Esterase Negative (Negative) Urine Microscopic RBC 3-5 H (0-3) per hpf Urine Microscopic WBC 0-3 (0-3) per hpf Ur Squamous Epith Cells None Seen (None-Few) per lpf Urine Bacteria None Seen (None-Few) per hpf Hyaline Casts None Seen (None-Few) per lpf Ur Culture Indicated? NO (NO) 02/01/17 02/01/17 Range/Units 21:08 21:08 WBC (4.3-11.1) K/mcL RBC (4.19-5.50) M/mcL Hgb (12.9-16.9) g/dL Hct (37.5-50.1) % MCV (83.0-100.0) fL MCH (28.0-33.3) pg MCHC (31.6-35.5) g/dL RDW (11.5-14.5) % Plt Count (140-400) K/mcL MPV (9.4-12.4) fL Immature Gran % (0-4) % Seg Neutrophils % % Lymphocytes % % Monocytes % % Eosinophils % % Basophils % % Neutrophils # (1.6-8.9) K/mcL Lymphocytes # (0.6-4.6) K/mcL Monocytes # (0.0-1.3) K/mcL Eosinophils # (0.0-0.6) K/mcL Basophils # (0.0-0.2) K/mcL PT (9.4-12.1) Seconds INR APTT (26.0-36.0) Seconds Sodium 137 (136-145) mEq/L Potassium 4.0 (3.5-4.5) mEq/L Chloride 103 (98-109) mEq/L Carbon Dioxide 26 (19-29) mEq/L BUN 24 (8-26) mg/dL Creatinine 1.35 H (0.72-1.25) mg/dL Est GFR ( Amer) > 60 (> 60) Est GFR (Non-Af Amer) 50 L (> 60) BUN/Creatinine Ratio 18 (6-26) Glucose 150 H (70-99) mg/dL Calculated Osmolality 291 (280-300) Calcium 8.8 (8.6-10.8) mg/dL Troponin I 0.01 (0-0.03) ng/mL Urine Color (Yellow) Urine Clarity (Clear) Urine pH (5.0-8.0) pH Units Ur Specific [place] (1.010-1.025) Urine Protein (Neg-Trace) mg/dL Urine Glucose (UA) (Normal) mg/dL Urine Ketones (Negative) mg/dL Urine Blood (Negative) Urine Nitrite (Negative) Urine Bilirubin (Negative) Urine Urobilinogen (Normal) mg/dL Ur Leukocyte Esterase (Negative) Urine Microscopic RBC (0-3) per hpf Urine Microscopic WBC (0-3) per hpf Ur Squamous Epith Cells (None-Few) per lpf Urine Bacteria (None-Few) per hpf Hyaline Casts (None-Few) per lpf Ur Culture Indicated? (NO) - Radiology Data Radiology results reviewed: Yes I reviewed the patient's radiology results. - EKG Data EKG #1 EKG attestation: Yes I reviewed and interpreted this EKG. EKG results narrative: ECG - interpreted by ED physician. Rate 73, normal sinus rhythm, no STEMI, AK, QT intervals, and QRS within normal limits
[2017-02-02] MEDS ORDERED: Naloxone 0.4 MG/ML INJ IVP PRN (01:03)
[2017-02-02] MEDS ORDERED: *HR* Morphine 2 MG/ML SYRINGE IVP PRN (01:03)
[2017-02-02] MEDS ORDERED: Nitroglycerin 0.4 MG TAB.SUBL SL PRN (01:05)
--- NOTE | 2017-02-02 01:59 | Internal Med History&Physical ---
Date of Encounter: 02/02/17 Time of Encounter: 01:54 Assessment and Plan (1) Chest pain Current visit: Yes Status: Acute he describes it more as chest discomfort and pressure like feeling. he was just worked up for ACS before dc yesterday. Stress test was negative for ischemia. TTE showed EF 60-65%. Mild diastolic dysfunction, no significant valvular disease. [facility] 10/2013- Severe three vessel CAD. LV is normal. EF 60%. He received successful PTCA and YASEMIN to his pLADand 1st diagonal bifurcation and mRCA. Denies recurrent symptoms since admission. [facility] vs medical management was discussed on the last admission which he denied. consult cardiology. agreeable for cardiac cath if he has to at this time/ will trend tropx3. first trop is negative, currently denies any chest pressure. Qualifiers: Chest pain type: unspecified Qualified Code(s): R07.9 - Chest pain, unspecified (2) HTN (hypertension) Current visit: No Status: Chronic will continue his home BP meds Qualifiers: Hypertension type: essential hypertension Qualified Code(s): I10 - Essential (primary) hypertension (3) HLD (hyperlipidemia) Current visit: No Status: Chronic continue home meds Qualifiers: Hyperlipidemia type: pure hypercholesterolemia Qualified Code(s): E78.00 - Pure hypercholesterolemia, unspecified; E78.0 - Pure hypercholesterolemia (4) Diabetes Current visit: No Status: Chronic Qualifiers: Diabetes mellitus type: type 2 Diabetes mellitus complication status: with neurologic complications Diabetes mellitus complication detail: with unspecified neuropathy Diabetes mellitus halfway insulin use: without long term care phlebotomist use Qualified Code(s): E11.40 - Type 2 diabetes mellitus with diabetic neuropathy, unspecified (5) CAD (coronary artery disease) Current visit: No Status: Chronic H/o UT and PCI in 2013. Continue asa and bb and imdur. No statin d/t myalgias. Qualifiers: Coronary Disease-Associated Artery/Lesion type: [place] artery [place] vs. transplanted heart: [place] heart Associated angina: angina presence unspecified Qualified Code(s): I25.10 - Atherosclerotic heart disease of [place] coronary artery without angina pectoris Internal Medicine - H&P: HPI Chief complaint: chills and chest pressure Admitted From: Home Plans for Post Hospital Care: Home History of present illness: Mr. Dudley is a 81 year old male with concerns of chills, generalized malaise, weakness and intermittent chest pressure. Patient has been evaluated multiple times over the past week for syncope and chest pain. HE was admitted twice this past week. On his last admission to the hospital, he presented wwith syncopal episode, he had possible ST elevations of the inferior leads, he was almost taken for emergent heart catheterization however his symptoms improved and he did not have elevation of his troponins. He was offered a left-sided cardiac catheterization for diagnostic and possible therapeutic benefit however after discussion of the risks and benefits with cardiology , the patient declined and wished to return home. Patient states his symptoms returned within 24 hours after leaving the hospital. HE says he was feeling very cold and was shaking during the day. He also describes chest pressure like feeling and says that he felt very uncomfortable, he denies it being pain though. no LOC today. Patient denies vomiting, diarrhea, sob, cough and says he did not check if he had fever. Denies recent trauma.he had fever over the last weekend upto 102 he says and since then he has been having chills. Past Med Surg Social Fam HX - Past Medical History Medical history: diabetes, hyperlipidemia, hypertension, myocardial infarction Psychiatric history: no psych history - Past Surgical History Surgical History: cholecystectomy, herniorrhaphy, hip replacement, knee replacement - Social History Smoking Status: Never smoker Smokeless Tobacco Status: No Alcohol use: none Drug use: none - Family History Father Adopted: [place]: VICKI Family Member Ethnicity: Non- Living Status: Age at : 85 Cause of : STROKE Hx Family Cardiac Disorders: No Hx Family Respiratory Disorders: No Hx Family Cancer: No Hx Family GI Disorders: No Hx Family Genitourinary Disorders: No Hx Family Endocrine Disorder: No Hx Family Musculoskeletal Disorders: No Hx Family Neuromuscular Disorders: No Hx Family Neurologic Disorders: Yes (STROKE) Hx Family HEENT Disorders: No Hx Family Autoimmune Disorders: No Hx Family Reproductive Disorders: No Hx Family Psychosocial Disorders: No Hx Family Medical Disorders: No Mother Family Member Ethnicity: Non- Living Status: Hx Family Cardiac Disorders: Yes (Angina) Hx Family Endocrine Disorder: Yes (DM) Brother Family Member Ethnicity: Non- Living Status: Still Living Internal Medicine - H&P: Meds Albuterol Sulfate [Ventolin Hfa] 2 puff IH Q4H PRN 01/28/17 [History] Aspirin Enteric Coated [Aspirin EC] 81 mg PO DAILY 01/28/17 [History] Clopidogrel [Plavix] 75 mg PO DAILY 01/28/17 [History] Cyanocobalamin (Vitamin B-12) [Vitamin B12] 2,000 mcg PO DAILY 01/28/17 [History ] Flaxseed Oil [[place]-3 Flaxseed Oil] 1,000 mg PO DAILY 01/28/17 [History] Isosorbide MONOnitrate (24 HR) [Imdur] 60 mg PO DAILY 01/28/17 [History] Losartan/Hydrochlorothiazide [Hyzaar 100-12.5 Tablet] 1 tab PO DAILY 01/28/17 [ History] Meclizine HCl [Verticalm] 25 mg PO DAILY PRN 01/28/17 [History] Metoprolol XL (24 HR) Succ [Toprol Xl] 25 mg PO DAILY 01/28/17 [History] Nitroglycerin [Nitrostat] 0.4 mg SL Q5M PRN 01/28/17 [History] [place]-3/Dha/Epa/Fish Oil [Fish Oil 1,360 mg Softgel] 1 cap PO DAILY 01/28/17 [ History] Potassium Chloride [K-Tab ER] 10 meq PO BID 01/28/17 [History] Saw/Vit E/Sod [place]/Lyc/Beta/Pyg [Prostate Health Caplet] 1 tab PO DAILY 01/28/17 [History] Vit A/C/E AC/Znox/Cupric Oxide [Eye Vitamin-Minerals Tablet] 1 tab PO DAILY 10/12 [History] glipiZIDE [Glucotrol] 5 mg PO BIDWM 01/28/17 [History] Furosemide [Lasix] 20 mg PO DAILY 01/30/17 [History] Allergies celecoxib [From Celebrex] Allergy (Verified 02/01/17 17:07) See Comments codeine Allergy (Verified 02/01/17 17:07) See Comments propoxyphene Allergy (Verified 02/01/17 17:07) See Comments Bnshikp-Ltw-Wtx Reductase Inhibitor [Statins] Allergy (Verified 02/01/17 17:07) See Comments Sulfa (Sulfonamide Antibiotics) Allergy (Verified 02/01/17 17:07) See Comments ROS unobtainable: due to endotracheal tube All Systems PM: A 10-system review of systems was performed and is negative for pertinent findings except as documented above in the HPI. - Constitutional Constitutional: as per HPI, chills, lethargy - EENT Eyes: as per HPI Ears: as per HPI Nose, mouth and throat: as per HPI - Breasts Breasts: as per HPI - Cardiovascular Cardiovascular ROS IM: as per HPI - Respiratory Respiratory: as per HPI - Gastrointestinal Gastrointestinal: as per HPI - Genitourinary Genitourinary ROS male: as per HPI - Musculoskeletal Musculoskeletal ROS IM: as per HPI - Constitutional Vitals: Temp Pulse Resp BP Pulse Ox 99.6 F 67 18 154/72 94 02/02/17 00:28 02/02/17 00:28 02/02/17 00:28 02/02/17 00:28 02/02/17 00:28 General appearance: Present: A&O X 3, no acute distress Exam: Head exam: Present: atraumatic, normocephalic - Eye Eye exam: Present: PERRL, conjuntiva pink, sclera anicteric Pupils: Present: PERRL - Neck Neck exam general surgery: Present: supple, trachea midline. Absent: lymphadenopathy - Respiratory Respiratory exam: Present: CTAB. Absent: accessory muscle use, rales, rhonchi, wheezes - Cardiovascular Cardiovascular exam: Present: RRR, +S1, +S2. Absent: diastolic murmur, gallop, rubs, systolic murmur - GI/Abdominal GI/Abdominal exam: Present: normal bowel sounds, soft, no peritoneal signs. Absent: distended, tenderness - Extremities Exam Extremities exam: Present: warm, radial pulses palpable and symetrical. Absent : calf tenderness, cyanotic, pedal edema - Neurological Exam Neurological exam: Present: CN II-XII intact, oriented X3, no focal deficits. Absent: pronater drift, facial droop, speech deficit - Skin Skin exam: Present: dry, intact Internal Med - H&P Results - Labs CBC & Chem 7: 02/01/17 21:08 02/01/17 21:08
[2017-02-02 04:23] LABS: BUN/Creatinine Ratio 19 (6-26); Blood Urea Nitrogen 23 mg/dL (8-26); Calcium 8.6 mg/dL (8.6-10.8); Carbon Dioxide 24 mEq/L (19-29); Chloride 104 mEq/L (98-109); Glucose 139 mg/dL (70-99); Osmolality,Calculated 290 (280-300); Sodium 137 mEq/L (136-145); eGFR For African Americans > 60 (> 60); eGFR For Non-African Americans 57 (> 60)
[2017-02-02 04:42] LABS: Potassium 3.8 mEq/L (3.5-4.5)
[2017-02-02 05:42] LABS: Basophils % 0.4 %; Eosinophils # 0.2 K/mcL (0.0-0.6); Eosinophils % 4.5 %; Hematocrit 30.1 % (37.5-50.1); Hemoglobin 10.5 g/dL (12.9-16.9); Immature Granulocytes % 0.2 % (0-4); Immature Platelets 3.8 % (1.1-6.1); Mean Corpuscular HGB Conc 34.9 g/dL (31.6-35.5); Mean Corpuscular Volume 97.4 fL (83.0-100.0); Mean Platelet Volume 10.3 fL (9.4-12.4); Monocytes # 0.6 K/mcL (0.0-1.3); Monocytes % 11.2 %; Neutrophils # 3.3 K/mcL (1.6-8.9); Platelet Count 137 K/mcL (140-400); Red Blood Count 3.09 M/mcL (4.19-5.50); Red Cell Distribution Width 12.6 % (11.5-14.5); Segmented Neutrophils % 63.7 %
[2017-02-02] MEDS: *HR* Heparin 5,000 UNIT/ML VIAL SQ SCH ×2 (06:11→18:10)
[2017-02-02] MEDS ORDERED: Furosemide 20 MG TABLET PO SCH (09:00)
--- NOTE | 2017-02-02 09:03 | Cardiology Consult Note ---
Date of Encounter: 02/02/17 Time of Encounter: 08:40 Assessment and Plan (1) Chest pain Current Visit: Yes Status: Acute Mr. Dudley presents for a second time with similar complaints; weakness, fatigue, chills, chest pain. His cardiac workup has been negative; recent stress test negative for ischemia, LVEF normal, ECG no acute findings, troponins on both visits negative. His symptoms are atypical and present in the setting of low grade fevers and mediastinal lymphadenopathy. This does not appear to represent ACS. However, the patient and family are very concerned that his presenting symptoms are related to CAD. He apparently had similar symptoms prior to his CA a few years ago. Risk factors does include diabetes, HTN, HPL. Diabetics can present atypically. The family and patient want to pursue a LHC. The R/B/A of the procedure were discussed with the patient and family. The patient expressed understanding and consents to proceed with LHC. Renal function has improved, GFR 57. Blood counts are stable. Of note, patient had a CT Ab/P demonstrating very enlarged prostate concerning for possible neoplasm. Radiology report suggested urologic consultation. Will defer management to primary service. However, if PCI is warranted during LHC, may consider BMS over YASEMIN. Will discuss with Interventional Cardiology. Patient is already on aspirin, plavix, BB. Has intolerance to statins. Qualifiers: Chest pain type: unspecified Qualified Code(s): R07.9 - Chest pain, unspecified Discussion w patient/family: The assessment and plan as outlined above was discussed with the patient and/or family members who expressed understanding and agreement. All questions were answered. Thank you for involving us in the care of your patient. Please call with any questions. History of Present Illness Consult date: 02/02/17 Requesting physician: Dev French Consult reason: Chest pain Chief complaint: Chills, weakness, fatigue, chest pressure History of present illness: Mr. Dudley is a 81 year old male recently admitted 01/29-01/31 with a possible syncopal event after showering. He also described feeling tremulous, chilled and diaphoretic and has periods of atypical chest pain. He felt that these symptoms were similar to his prior CA a few years ago. We were asked to evaluate ECGs which did not demonstrate STEMI which was the concern of the primary team. There were no dynamic ECG changes. He recently underwent stress testing that was negative for ischemia. His troponins during recent stay were negative and EF preserved on echo. He also underwent a CTA which was negative for PE. He now presents again for similar symptoms described as feeling chills, fatigue , weakness. He also continues to have atypical chest pain predominately at rest. Since he's been here he has demonstrated low grade fevers. WBCs are normal. Blood count is stable. He had a CTA 01/31 demonstrating multiple mild enlargement of lymph nodes in the left hilum and precarinal space, probably reactive. A Neck CTA also demonstrated mild to moderate mediastinal lymphadenopathy. CT Ab/P demonstrated very enlarged prostate and neoplasm could not be excluded. At the bedside, patient is warm and somewhat diaphoretic. He is accompanied by his and daughter. He remains concerned about ongoing chest pain as a cause for his ongoing symptoms. Past Med Surg Social Fam HX - Past Medical History Attestation: Yes The following information was validated with the patient. Medical history: diabetes, hyperlipidemia, hypertension, myocardial infarction Psychiatric history: no psych history - Past Surgical History Surgical History: cholecystectomy, herniorrhaphy, hip replacement, knee replacement - Social History Smoking Status: Never smoker Smokeless Tobacco Status: No Alcohol use: none Drug use: none - Family History Father Adopted: [place]: VICKI Family Member Ethnicity: Non- Living Status: Age at : 85 Cause of : STROKE Hx Family Cardiac Disorders: No Hx Family Respiratory Disorders: No Hx Family Cancer: No Hx Family GI Disorders: No Hx Family Genitourinary Disorders: No Hx Family Endocrine Disorder: No Hx Family Musculoskeletal Disorders: No Hx Family Neuromuscular Disorders: No Hx Family Neurologic Disorders: Yes (STROKE) Hx Family HEENT Disorders: No Hx Family Autoimmune Disorders: No Hx Family Reproductive Disorders: No Hx Family Psychosocial Disorders: No Hx Family Medical Disorders: No Mother Family Member Ethnicity: Non- Living Status: Hx Family Cardiac Disorders: Yes (Angina) Hx Family Endocrine Disorder: Yes (DM) Brother Family Member Ethnicity: Non- Living Status: Still Living Medications and Allergies Albuterol Sulfate [Ventolin Hfa] 2 puff IH Q4H PRN 01/28/17 [History] Aspirin Enteric Coated [Aspirin EC] 81 mg PO DAILY 01/28/17 [History] Clopidogrel [Plavix] 75 mg PO DAILY 01/28/17 [History] Cyanocobalamin (Vitamin B-12) [Vitamin B12] 2,000 mcg PO DAILY 01/28/17 [History ] Flaxseed Oil [[place]-3 Flaxseed Oil] 1,000 mg PO DAILY 01/28/17 [History] Isosorbide MONOnitrate (24 HR) [Imdur] 60 mg PO DAILY 01/28/17 [History] Losartan/Hydrochlorothiazide [Hyzaar 100-12.5 Tablet] 1 tab PO DAILY 01/28/17 [ History] Meclizine HCl [Verticalm] 25 mg PO DAILY PRN 01/28/17 [History] Metoprolol XL (24 HR) Succ [Toprol Xl] 25 mg PO DAILY 01/28/17 [History] Nitroglycerin [Nitrostat] 0.4 mg SL Q5M PRN 01/28/17 [History] [place]-3/Dha/Epa/Fish Oil [Fish Oil 1,360 mg Softgel] 1 cap PO DAILY 01/28/17 [ History] Potassium Chloride [K-Tab ER] 10 meq PO BID 01/28/17 [History] Saw/Vit E/Sod [place]/Lyc/Beta/Pyg [Prostate Health Caplet] 1 tab PO DAILY 01/28/17 [History] Vit A/C/E AC/Znox/Cupric Oxide [Eye Vitamin-Minerals Tablet] 1 tab PO DAILY 10/12 [History] glipiZIDE [Glucotrol] 5 mg PO BIDWM 01/28/17 [History] Furosemide [Lasix] 20 mg PO DAILY 01/30/17 [History] Allergies celecoxib [From Celebrex] Allergy (Verified 02/01/17 17:07) See Comments codeine Allergy (Verified 02/01/17 17:07) See Comments propoxyphene Allergy (Verified 02/01/17 17:07) See Comments Pwxwqmp-Kip-Rid Reductase Inhibitor [Statins] Allergy (Verified 02/01/17 17:07) See Comments Sulfa (Sulfonamide Antibiotics) Allergy (Verified 02/01/17 17:07) See Comments All Systems Review: A 10-system review of systems was performed and is negative for pertinent findings except as documented above in the HPI. - Cardiovascular Cardiovascular: as per HPI Physical Examination Vital Signs, Last 4 Hours Temp Pulse Resp BP Pulse Ox 02/02/17 06:52 98.5 F 71 16 153/64 92 General: Conversant, No Apparent Distress, Other (warm and somewhat diaphoretic) HEENT: Atraumatic, Normocephaly, Mucus Membranes Moist Neck: No JVD Cardiac: Reg Rate and Rhythm, Normal S1 and S2, No Murmur Lungs: Normal Breath Sounds, No Wheeze, Rales, Rhonchi Neuro: Alert and responsive, No focal deficits noted Abdomen: Soft, Other (bowel sounds present) Extremities: Other (no significant LE edema, poorly palpable distal pulses, bilateral 2+ femoral pulses) Results 02/02/17 05:24 02/02/17 03:23 Lab Results 02/02/17 02/02/17 02/02/17 03:23 03:23 05:24 WBC 5.1 Hgb 10.5 L Hct 30.1 L Plt Count 137 L Sodium 137 Potassium 3.8 Chloride 104 Carbon Dioxide 24 BUN 23 Creatinine 1.22 Glucose 139 H Calcium 8.6 Troponin I 0.02 - Imaging and Cardiology Stress Test: report reviewed Echo: report reviewed (24h telemetry reviewed, average HR 71 bpm, no concerning dysrhythmia) Other Results: CTA, CT Ab/P reports reviewed Consult Discharge Plan - Plan Referrals: Wen Baires MD [Primary Care Provider] -
[2017-02-02 09:20] LABS: Basophils % 0.2 %; Eosinophils # 0.2 K/mcL (0.0-0.6); Eosinophils % 4.4 %; Hemoglobin 10.9 g/dL (12.9-16.9); Immature Granulocytes % 0.2 % (0-4); Lymphocytes # 0.9 K/mcL (0.6-4.6); Mean Corpuscular HGB Conc 35.2 g/dL (31.6-35.5); Mean Corpuscular Hemoglobin 34.3 pg (28.0-33.3); Mean Corpuscular Volume 97.5 fL (83.0-100.0); Monocytes # 0.5 K/mcL (0.0-1.3); Monocytes % 11.1 %; Neutrophils # 2.8 K/mcL (1.6-8.9); Platelet Count 137 K/mcL (140-400); Red Blood Count 3.18 M/mcL (4.19-5.50); Red Cell Distribution Width 12.5 % (11.5-14.5); Segmented Neutrophils % 64.1 %
[2017-02-02 09:34] LABS: BUN/Creatinine Ratio 18 (6-26); Blood Urea Nitrogen 22 mg/dL (8-26); Calcium 8.7 mg/dL (8.6-10.8); Carbon Dioxide 26 mEq/L (19-29); Chloride 103 mEq/L (98-109); Glucose 146 mg/dL (70-99); Osmolality,Calculated 292 (280-300); Potassium 3.6 mEq/L (3.5-4.5); Sodium 138 mEq/L (136-145); eGFR For African Americans > 60 (> 60); eGFR For Non-African Americans 58 (> 60)
[2017-02-02] MEDS: Isosorbide MONOnitrate (24 HR) 60 MG TAB.ER.24H PO SCH (09:57)
[2017-02-02] MEDS: Losartan/HCTZ 50-12.5 TABLET PO SCH (09:57)
[2017-02-02] MEDS: Aspirin Enteric Coated 81 MG Tablet PO SCH (09:57)
[2017-02-02] MEDS: Metoprolol XL (24 HR) Succ 25 MG TAB.ER.24H PO SCH (09:57)
[2017-02-02] MEDS: 0.9 % Sodium Chloride 1,000 ML IVC SCH (09:58)
--- NOTE | 2017-02-02 11:04 | Pre-Sedation Evaluation ---
Pre-sedation evaluation - Pre-sedation checklist Date of procedure: 02/02/17 Procedure: [facility] Recent Vitals: Last Vital Signs Temp 98.5 F 02/02/17 06:52 Pulse 71 02/02/17 06:52 Resp 16 02/02/17 10:43 BP 153/64 02/02/17 06:52 Pulse Ox 92 02/02/17 10:43 H&P (including ROS) documented in medical record: Yes Previous reaction to sedatives/anesthetics: No Dietary Status: NPO after Midnight Airway Assessment: Patient can open mouth completely, TMJ function normal, Micrognathia (under-bite, receding chin) absent, Neck with adequate range of motion Dentition: No loose teeth or bridges Possible difficult airway: No ASA Classification *see protocol: CLASS II-Mild systemic disease Plan of Care: Pt appropriate candidate for procedure/moderate/conscious sedation , Risks/benefits of procedure/sedation discussed w/ patient/family
[2017-02-02] MEDS ORDERED: *HR* Heparin 10,000 UNIT/10 ML VIAL ONE (11:06)
[2017-02-02] MEDS ORDERED: Heparin 1,000 UNITS/500 mL NS 500 ML ONE (11:06)
[2017-02-02] MEDS ORDERED: Nitroglycerin 1,000 MCG/10 ML VIAL IV ONE (11:06)
[2017-02-02] MEDS ORDERED: 0.9 % Sodium Chloride 1,000 ML ONE (11:06)
[2017-02-02] MEDS ORDERED: *HR* Midazolam HCl 2 MG/2 ML VIAL ONE (11:25)
[2017-02-02] MEDS ORDERED: *HR* FentaNYL (PF) 100 MCG/2 ML VIAL ONE (11:26)
[2017-02-02] MEDS ORDERED: *HR* Bivalirudin 250 MG VIAL IVC ONE ×2 (12:01→12:30)
[2017-02-02] MEDS ORDERED: *HR* Ticagrelor 90 MG TABLET ONE (12:11)
[2017-02-02] MEDS ORDERED: 0.9 % Sodium Chloride 1,000 ML IVC SCH (13:00)
--- NOTE | 2017-02-02 13:06 | Invasive Diagnostic Lab Proc ---
Name: Nacho Dudley Date of Study: 02/02/2017 Date: 1935 Ht: 68.9in Medical Record#: [id number] Age: 81 Wt: 231.49lb Gender: Male BSA: 2.2 Order #: [id number] BMI: 34.29 Physicians Procedure Physician: Wen Villarreal MD, [facility] Referring MD: Wen Baires MD Referring MD: Staff Name Position Time In Sites, Linette RT (R) Monitor 11:47 AM Douglas Upton RN Can Labeler 11:47 AM Armida Nix RT (R) Scrub 11:47 AM Indications Indication Unstable Angina Procedures Performed Procedure PRQ CARD BM STENT W/ANGIO 1 VSL CORONARY ARTERY ANGIO S\\T\\I Pre-Procedure Checklist Informed consent is complete signed and on chart. H\\T\\P is on chart. ID band is on and ID verified with patient. Patient NPO for procedure The procedure was described for the patient and questions were answered. Blood Pressure: 153/64 ECG is on chart. Rhythm: NSR Plan of Care Patient will tolerate the procedure without complications. Adequate level of comfort will be maintained. Hemodynamics will remain stable Patient will recover from procedure without complications. Respiratory function will be maintained. Cardiac rhythm will remain stable. Patient temperature will be maintained. Patient and/or family have verbalized understanding of the procedure. Patient Education Intravenous Access Time IV Size Location DC'd Fluid/Drip Rate Units RN 11:21 AM 20g 1 1/4" Patent On Arrival Rt Antecubital 0.9NaCl 25 ml/hr Douglas Upton RN Allergies Celebrex Darvocet Alfuzosin celecoxib Acetaminophen propoxyphene Sulfa (Sulfonamide Antibiotics) Vtsgftt-Niz-Ouq Reductase Inhibitor codeine Vital Signs Time BP (mmHg) HR (bpm) O2 Sat. RR (bpm) LOC 11:21 AM 153 / 64 71 92 % 16 5 = Fully awake and oriented or at pre-proc level 11:48 AM / % 5 = Fully awake and oriented or at pre-proc level 12:05 PM 131 / 68 69 97 % 9 12:08 PM 131 / 73 67 97 % 20 12:11 PM 129 / 67 69 96 % 15 12:14 PM 129 / 66 68 95 % 13 12:17 PM 122 / 63 69 96 % 16 12:20 PM 126 / 66 69 96 % 14 12:23 PM 130 / 68 69 97 % 13 12:26 PM 136 / 71 71 97 % 15 12:29 PM 138 / 69 71 97 % 18 12:32 PM 145 / 69 66 97 % 26 12:35 PM 135 / 63 78 95 % 11 11:48 AM 147 / 70 63 97 % 26 11:50 AM 125 / 63 66 96 % 18 11:53 AM 123 / 63 65 97 % 16 11:56 AM 129 / 61 70 97 % 30 11:59 AM 128 / 67 74 96 % 13 12:02 PM 131 / 66 67 97 % 19 12:38 PM 149 / 76 73 96 % 8 12:41 PM 142 / 77 70 94 % 16 Procedural Medications Time Medication Dose Units Method Given By 11:48 AM Oxygen 2 L/min nasal cannula Douglas Upton RN 11:49 AM Versed 1 mg Intravenous Douglas Upton RN 11:49 AM Fentanyl 25 mcg Intravenous Douglas Upton RN 11:52 AM Lidocaine 2% 17 ml Subcutaneous Wen Villarreal MD, FACC 12:05 PM Angiomax 0.75mg/kg bolus: 16 ml Intravenous Douglas Upton RN 12:05 PM Angiomax 1.75mg/kg/hr: 37 ml Intravenous Douglas Upton RN 12:06 PM Versed 1 mg Intravenous Douglas Upton RN 12:06 PM Fentanyl 25 mcg Intravenous Douglas Upton RN 12:32 PM Nitroglycerin 200 mcg Intracoronary Wen Villarreal MD, FACC 12:37 PM Brilinta 180 mg Orally Douglas Upton RN ASA Classification: CLASS II- Mild systemic disease (i.e. well-controlled diabetes, hypertension, asthma, cigarette smoking) Estrellita Score Preprocedure Postprocedure Activity 2- Moves 4 extremities sustained head lift Activity 2- Moves 4 extremities sustained head lift Circulation 2- SBP +/= 20 points of pre-anesthetic level Circulation 2- SBP +/= 20 points of pre-anesthetic level Consciousness 2- Awake and alert oriented x 3 Consciousness 2- Awake and alert oriented x 3 O2 Saturation 2- Able to maintain O2 satruation of 92% on room air O2 Saturation 2- Able to maintain O2 satruation of 92% on room air Respiratory 2- Able to deep breathe and cough well Respiratory 2- Able to deep breathe and cough well Total Score 10 Total Score 10 Contrast Agent: Isovue Diagnostic Contrast: 215 ml Total Contrast: 215 ml Fluoro Dose: 772 mGy Procedure Log Time Note Enter By 11:15 AM CathStat 11:46 AM Case Start 11:46 AM Vitals capture started with the following parameters, Patient=Adult, Interval=3 min, Initial Wfrslbyd=396 mmHg, Deflation Rate=5 mmHg, Cuff placed on Right Arm 11:46 AM Recorded ECG: HR=62 Condition=Condition 1 11:47 AM Pt arrived to labeling specialist 2 at 11:47 [email or web address] 11:47 AM Linette Coker RT (R) Position: Monitor Time in: 11:47 csmith 11:47 AM Douglas Upton RN Position: Can Labeler Time in: 11:47 csmith 11:47 AM Armida Nix RT (R) Position: Scrub Time in: 11:47 csmith 11:47 AM Patient charges- Angio tray pack, Navilyst 3mm J, Pulse Oximetry and ACIST tubing and transducer csmith 11:47 AM Case Delayed No csmith 11:47 AM Hair removed from procedure site in procedure lab using clippers. Bilateral groin prepped with Chloraprep by Armida Nix RT (R), safety strap applied then patient was draped. Skin intact. csmith 11:47 AM Physician arrived 11:47 csmith 11:48 AM Meet and greet completed csmith 11:48 AM Sign in performed according to hospital policy. csmith 11:48 AM HR=63 bpm, GIIF=695/70 mmhg, SpO2=97.0 %, Resp=26 B/min, Comment=sr 11:48 AM Procedure start 11:48 csmith 11:48 AM Time: 11:48 Oxygen on at 2 L/min per nasal cannula by Douglas Upton RN csmith 11:48 AM Time: 11:48 Patient comfortable and pain free: Yes csmith 11:48 AM Time: 11:48LOC: 5 = Fully awake and oriented or at pre-proc level csmith 11:48 AM Clinical Presentation: Unstable angina csmith 11:49 AM Time: 11:49 Versed 1 mg Intravenous Given by Douglas Upton RN csmith 11:49 AM Time: 11:49 Fentanyl 25 mcg Intravenous Given by Douglas Upton RN csmith 11:50 AM HR=66 bpm, UYCI=304/63 mmhg, SpO2=96.0 %, Resp=18 B/min 11:52 AM Time out performed according to hospital policy tsites 11:53 AM HR=65 bpm, DIIC=187/63 mmhg, SpO2=97.0 %, Resp=16 B/min 11:53 AM Time: 11:52 17 ml Lidocaine 2% to right groin Subcutaneous Given by Wen Villarreal MD, [facility] tsites 11:54 AM Access obtained by percutaneous puncture. 5Fr 10cm Terumo Bolton sheath placed in right Femoral artery. [id number] tsites 11:54 AM 5Fr FL 4 catheter inserted over the wire [facility] tsites 11:55 AM LCA angiography performed in multiple views. tsites 11:55 AM Recorded Pressure: Ao, HR=58, Condition=Condition 1 (Aorta) Ao 91/42/64 11:56 AM HR=70 bpm, GOVE=547/61 mmhg, SpO2=97.0 %, Resp=30 B/min 11:57 AM wire reinserted catheter removed tsites 11:57 AM 5Fr FR 4 catheter inserted over the wire [facility] tsites 11:58 AM Recorded Pressure: Ao, HR=76, Condition=Condition 1 (Aorta) Ao 134/1/56 11:58 AM RCA angiography performed in multiple views. tsites 11:58 AM wire reinserted catheter removed tsites 11:59 AM HR=74 bpm, BOEB=600/67 mmhg, SpO2=96.0 %, Resp=13 B/min 12:01 PM PCI Status Urgent tsites 12:02 PM PCI Indication: PCI for high risk Non-STEMI or unstable angina tsites 12:02 PM HR=67 bpm, FBLQ=273/66 mmhg, SpO2=97.0 %, Resp=19 B/min 12:02 PM PCI lesion in Mid LAD. Pre Stenosis: 95 Pre JUAN M Flow: 3: Complete and Brisk Flow/Perfusion tsites 12:02 PM PCI lesion in Mid LAD. tsites 12:02 PM Sheath exchanged for a 6 Fr 11 cm Cordis Glendy sheath [id number] tsites 12:02 PM Inflation device was opened. tsites 12:03 PM 6Fr XB LAD 3.5 Cordis guide catheter was used to cannulate the PCI vessel successfully. reused? No tsites 12:03 PM .014 Prowater 182cm guide wire across target lesion- successful. reused? No tsites 12:04 PM 2.0 mm x 15 mm Emerge Monorail balloon across target lesion- successful. reused? No tsites 12:04 PM Pressure channel 1 zeroed. 12:05 PM HR=69 bpm, MIPH=635/68 mmhg, SpO2=97.0 %, Resp=9 B/min 12:05 PM Time: 12:05 Angiomax 0.75mg/kg bolus: 16 ml Intravenous Given by Douglas Upton RN [facility] 12:05 PM Time: 12:05 Angiomax 1.75mg/kg/hr: 37 ml Intravenous Given by Douglas Upton RN [facility] 12:06 PM Time: 12:06 Versed 1 mg Intravenous Given by Douglas Upton RN [facility] 12:06 PM Time: 12:06 Fentanyl 25 mcg Intravenous Given by Douglas Upton RN tsites 12:08 PM HR=67 bpm, TDKQ=577/73 mmhg, SpO2=97.0 %, Resp=20 B/min 12:11 PM HR=69 bpm, YWXU=106/67 mmhg, SpO2=96.0 %, Resp=15 B/min 12:11 PM Balloon inflated @ 10 norman for 22 seconds tsites 12:14 PM HR=68 bpm, CMVG=877/66 mmhg, SpO2=95.0 %, Resp=13 B/min 12:14 PM Balloon inflated @ 14 norman for 20 seconds tsites 12:15 PM Balloon inflated @ 14 norman for 20 seconds tsites 12:17 PM HR=69 bpm, MBFW=243/63 mmhg, SpO2=96.0 %, Resp=16 B/min 12:20 PM HR=69 bpm, RFKL=907/66 mmhg, SpO2=96.0 %, Resp=14 B/min 12:23 PM HR=69 bpm, FTDE=035/68 mmhg, SpO2=97.0 %, Resp=13 B/min 12:24 PM 2.5mm x 18mm Multi-Link Mini Vision RX Stent bare metal stent across target lesion- successful Lot #[id number] tsites 12:24 PM Stent deployed @ 10 norman for 30 seconds tsites 12:24 PM Recorded Pressure: Ao, HR=73, Condition=Condition 1 (Aorta) Ao 111/58/84 12:25 PM Stent balloon reinflated @ 16 norman for 16 seconds tsites 12:26 PM HR=71 bpm, VUIE=173/71 mmhg, SpO2=97.0 %, Resp=15 B/min 12:27 PM Stent balloon reinflated @ 8 norman for 10 seconds tsites 12:28 PM 2.5 mm x 20mm NC Emerge balloon across target lesion- successful. reused? No tsites 12:29 PM Balloon inflated @ 20 norman for 20 seconds tsites 12:29 PM HR=71 bpm, KVCM=123/69 mmhg, SpO2=97.0 %, Resp=18 B/min 12:30 PM Balloon inflated @ 20 norman for 10 seconds tsites 12:31 PM Balloon inflated @ 20 norman for 15 seconds tsites 12:32 PM Time: 12:32 Nitroglycerin 200 mcg Intracoronary Given by Wen Villarreal MD, FACC tsites 12:32 PM HR=66 bpm, NIIO=042/69 mmhg, SpO2=97.0 %, Resp=26 B/min 12:32 PM Recorded Pressure: Ao, HR=75, Condition=Condition 1 (Aorta) Ao 109/49/75 12:34 PM wire reinserted catheter removed tsites 12:35 PM HR=78 bpm, DXIA=964/63 mmhg, SpO2=95.0 %, Resp=11 B/min 12:36 PM Bolus angiogram of right Femoral complete: 2 ml/sec for a total of 4 mls tsites 12:36 PM Procedure completed at 12:36 tsites 12:37 PM Sign out completed: Radiation Dose 772 mGy Fluoro Time: 8.5 Isovue 370 - 500ml contrast 215 ml given by Wen Villarrael MD, [facility]. Complications: NoneCardiac Rehab Consult needed: YesConfirmed administered medications: Yes tsites 12:37 PM Time: 12:37 Brilinta 180 mg Intravenous Given by Douglas Upton RN tsites 12:38 PM HR=73 bpm, ABAG=082/76 mmhg, SpO2=96 %, Resp=8 B/min 12:40 PM Sheath left in place to be pulled on floor/holding areaV+Pad tsites 12:40 PM Post ECG NSR tsites 12:41 PM HR=70 bpm, VACT=737/77 mmhg, SpO2=94 %, Resp=16 B/min 12:45 PM Post Blood Pressure 142/77 tsites 12:46 PM 12:46 Post Pulses Bilateral DP \\T\\ PT 1+ tsites 12:46 PM Information taught Cardiac Cath and PCI tsites 12:47 PM Education needs Procedure, Plan of Care, and Responsibilities of Patient in Care tsites 12:47 PM Learning barriers :None tsites 12:47 PM Education Methods Verbal tsites 12:47 PM Education evaluation Able to repeat information tsites 12:47 PM Site status No bleeding/hematoma - Rt Groin as reported by Armida Nix RT (R) at 12:47 tsites 12:48 PM Opsite applied tsites 12:48 PM Plavix, Effient or Brilinta given Yes tsites 12:48 PM Delay to floor Bed availability tsites 12:48 PM Family placed in consult room. tsites 12:50 PM Report given to tani PARK Pt taken to 2N Room #7. 12:50 tsites 12:50 PM Patient out of room: 12:50 tsites 12:50 PM Coronary Dominance: right tsites 12:50 PM Lesion found in Proximal RCA. Pre Stenosis: 30 Pre JUAN M Flow: tsites 12:51 PM Lesion found in Mid RCA. Pre Stenosis: 30 Pre JUAN M Flow: tsites 12:51 PM Lesion found in LMCA. Pre Stenosis: 30 Pre JUAN M Flow: tsites 12:51 PM Left Main Coronary Artery with 30% stenosis tsites 12:51 PM Lesion found in Proximal LAD. Pre Stenosis: 15 Pre JUAN M Flow: tsites 12:51 PM Lesion found in 1st Diagonal. Pre Stenosis: 80 Pre JUAN M Flow: tsites 12:51 PM Lesion found in Proximal Circumflex. Pre Stenosis: 70 Pre JUAN M Flow: tsites 12:52 PM Lesion found in Ramus. Pre Stenosis: 30 Pre JUAN M Flow: tsites 12:52 PM Proximal Left Anterior Descending Coronary Artery with 15% stenosis. If graft is supplying this territory, 0 % stenosis. tsites 12:52 PM Mid/Distal Left Anterior Descending Coronary Artery and diagonal branches with 95% stenosis. If graft is supplying this area, 0 % stenosis tsites 12:52 PM Circumflex, Obtuse Marginal, Left Posterior Descending, and Left Posterolateral Coronary Arteries with 70 % stenosis. If graft is supplying this area, 0 % stenosis tsites 12:53 PM Right Coronary, Right Posterior Descending Arteries with Right Posterolateral and Acute Marginal branches with 30 % stenosis. If graft is supplying this area, 0 % stenosis tsites Complications Complication None Hemodynamics Pressures Site Systolic/A Wave Diastolic/V Wave Mean AO 91 42 64 AO 134 1 56 AO 111 58 84 AO 109 49 75 Post Procedure Information Blood Pressure: 142/77 mmHg Rhythm: NSR Post procedural instructions were given Closure Device Time Device Success/Fail 02/02/2017 12:54:00 PM Manual Compression Site Checks Time Location Status Staff Sheath In? Note 12:47 PM Rt Groin No bleeding/hematoma Armida Nix RT (R) Pulses Time Site Pre-Procedure Post-Procedure Note 02/02/2017 11:21:00 AM Bilateral radial 2+ 02/02/2017 11:21:00 AM Bilateral DP 1+ 12:46:00 PM Bilateral DP \\T\\ PT 1+ Updated by Linette Coker RT (R) on 02/02/2017 1:01:02 PM Linette Coker RT electronically signed on 02/02/2017 1:02:43 PM with status of Final
--- NOTE | 2017-02-02 13:24 | Invasive Diagnostic Lab ---
Name: Nacho Dudley Date of Study: 02/02/2017 Date: 1935 Ht: 175.0 cm /68.9 in Medical Record#: [id number] Age: 81 Wt: 105. kg / 231.49 lb Account/Order#: [id number] Gender: Male BSA: 2.2 Order #: [id number] Fluoro Dose: 772 mGy BMI: 34.29 Procedure Physician: Wen Villarreal MD, [facility] Referring MD: Wen Baires MD Referring MD: Procedures Performed: Stent w/ PTCA Single Major Vessel CORONARY ANGIOGRAPHY Indications: Unstable Angina Impressions: Triple vessel coronary artery disease. Previously stented proximal LAD/diagonal 1, mid RCA patent. Patient had successful PTCA/Bare Metal Stent placement in the mid LAD. Recommendations: Dual antiplatelet therapy. Optimal medical therapy of patient's disease. Aggressive risk factor modification. Patient being referred for cardiac rehab. Procedure Access obtained in the right Femoral artery by percutaneous puncture Patient had successful PTCA/Bare Metal Stent placement in the mid LAD. Complications: None Contrast: Isovue 215ml Closure Device: Manual Compression Hemodynamics: Pressures Site Systolic/ A Wave Diastolic/ V Wave End Diastolic/ Mean HR AO 91 42 64 58 AO 134 1 56 76 AO 111 58 84 73 AO 109 49 75 75 Coronary Dominance: right Lesion Findings/Interventions * Left Main Coronary Artery There is a 30% stenosis in the LMCA. * Left Anterior Descending There is a 15% instent restenosis in the Proximal LAD. There is a 18 mm long, 95% stenosis in the Mid LAD at distal edge of previous stent. The lesion has a JUAN M flow of 3 and has no thrombus present. An intervention was performed on the Mid LAD with a final stenosis of 0%. There were no lesion complications. The final JUAN M flow was 3. There is a 15% instent restenosis in proximal diag 1 and 80% stenosis in the 1st Diagonal at distal edge of previous stent. * Circumflex There is a 70% stenosis in the Proximal Circumflex. * Ramus There is a 30% stenosis in the Ramus. * Right Coronary Artery There is a 30% stenosis in the Proximal RCA. There is a 30% instent restenosis in the Mid RCA. Interventional Device(s) Vessel Segment Type Name Diameter (mm) Length (mm) Mid LAD Balloon Emerge Monorail 2 15 Mid LAD Bare Metal Stent Multi-Link Mini Vision RX Stent 2.5 18 Mid LAD Balloon NC Emerge 2.5 20 Updated by Wen Villarreal MD, FACC on 02/02/2017 1:14:02 PM Wen Villarreal MD, FACC electronically signed on 02/02/2017 1:18:51 PM with status of Final
[2017-02-02] MEDS ORDERED: *HR* Atropine Sulfate 1 MG/ML VIAL ONE (16:35)
--- NOTE | 2017-02-02 16:36 | Event Note ---
Date of Encounter: 02/02/17 Time of Encounter: 09:00 Patient was seen and assessed at 9 AM. and daughter were at bedside. He is alert and oriented and answered questions appropriately. He was admitted to the emergency department last evening after being home for approximately 3 hours after being discharged. This is his third admission in the last week for syncope and chest pain. Last night he was at home began shaking uncontrollably and feeling cold, fatigued, weak, and having chest pressure. He reports a history of shaking, chills, feeling clammy, nausea and as he said, "hard dry heaves." Patient was discharged 2 nights ago and returned last night for same symptoms. Last admission to the hospital he presented with a syncopal episode, had possible ST elevations in inferior leads, he was going to have an emergent heart catheter, however, his symptoms improved and he did not have any elevated troponins. He was offered an LHC for diagnostic and possible therapeutic benefit, however, after discussion of risks and benefits he decided to go home. Symptoms returned within 24 hours. He has been afebrile and there is no leukocytosis. He denies cough, dysuria, but states he did have a fever up to 102 last weekend. Patient had LHC today that showed triple vessel coronary artery disease, prior stents, and successful bare metal stent placed in mid LAD. He will be on dual antiplatelet therapy and is going to be referred for cardiac rehabilitation. There is 30% stenosis in the LMCA, 15 restenosis in-stent proximal LAD, 18 mm long 95% stenosis and mid LAD at distal edge of previous stent, final stenosis after stent with 0%, there is 15% restenosis in proximal diagonal 1 and 80% stenosis in the first diagonal distal edge of previous stent. 70% stenosis of proximal circumflex 30% stenosis in the ramus and 30% stenosis in proximal and mid RCA. Patient will continue aspirin, Plavix, beta dick. He has intolerance to statins. Patient also reports recent difficulty starting urine stream and complains of abdominal pain, nausea, and bloating. He has appointment with neurology, Dr. Escobar on February 13. He does have enlarged prostate that he is aware of. CT abdomen and pelvis showed there is hyperdense material within the urinary bladder, which is increased when compared to previous exam and may represent blood products. Prostate is very enlarged and has increased in size when compared to prior exam, neoplasm would be difficult to exclude. Urologic evaluation is recommended. Patient has multiple renal cysts and they also have increased in size when compared to previous exam, but there are no suspicious cystic abnormalities. Patient can follow up outpatient on discharge, unless he is having significant difficulties prior to discharge. He is aware of the CTA results. Physical exam was unremarkable. Patient is alert, awake, oriented 3. Has no anterior or posterior cervical adenopathy, he does have a palpable thyroid nodule that he is aware of, this has been evaluated in the past. His lungs are clear and diminished anteriorly and posteriorly. S1 and S2 are heard with regular rate and rhythm. Abdomen is distended, soft, nontender to palpation, bowel sounds are present. He has no peripheral edema. +1 peripheral pulses to bilateral upper and lower extremities. Cardiology is following at this time. Family has requested that he not be sent home immediately due to this being his third admission in the week. They are requesting that he stay and be evaluated and not be sent home early. Continue telemetry, monitor labs, continue aspirin, dick, Plavix. Continue to monitor vital signs, oxygen titrate as needed to maintain sats greater than 92% . He has been referred to cardiac rehabilitation.
[2017-02-03 01:25] LABS: Basophils % 0.4 %; Eosinophils # 0.1 K/mcL (0.0-0.6); Eosinophils % 2.1 %; Hematocrit 28.9 % (37.5-50.1); Immature Granulocytes % 0.2 % (0-4); Lymphocytes # 0.6 K/mcL (0.6-4.6); Mean Corpuscular HGB Conc 34.6 g/dL (31.6-35.5); Mean Corpuscular Volume 98.3 fL (83.0-100.0); Mean Platelet Volume 10.5 fL (9.4-12.4); Monocytes # 0.6 K/mcL (0.0-1.3); Monocytes % 11.4 %; Neutrophils # 3.9 K/mcL (1.6-8.9); Platelet Count 133 K/mcL (140-400); Red Blood Count 2.94 M/mcL (4.19-5.50); Red Cell Distribution Width 12.5 % (11.5-14.5); Segmented Neutrophils % 74.9 %
[2017-02-03 01:36] LABS: BUN/Creatinine Ratio 16 (6-26); Blood Urea Nitrogen 20 mg/dL (8-26); Calcium 8.3 mg/dL (8.6-10.8); Carbon Dioxide 23 mEq/L (19-29); Chloride 107 mEq/L (98-109); Glucose 152 mg/dL (70-99); Osmolality,Calculated 292 (280-300); Potassium 3.9 mEq/L (3.5-4.5); Sodium 138 mEq/L (136-145); eGFR For African Americans > 60 (> 60); eGFR For Non-African Americans 57 (> 60)
[2017-02-03] MEDS: *HR* Heparin 5,000 UNIT/ML VIAL SQ SCH (04:55)
[2017-02-03] MEDS: 0.9 % Sodium Chloride 1,000 ML IVC SCH (04:56)
[2017-02-03] MEDS: Aspirin Enteric Coated 81 MG Tablet PO SCH (07:55)
[2017-02-03] MEDS: Metoprolol XL (24 HR) Succ 25 MG TAB.ER.24H PO SCH (07:55)
[2017-02-03] MEDS: Losartan/HCTZ 50-12.5 TABLET PO SCH (07:55)
[2017-02-03] MEDS: Isosorbide MONOnitrate (24 HR) 60 MG TAB.ER.24H PO SCH (07:55)
--- NOTE | 2017-02-03 09:46 | Cardiology Progress Note ---
Date of Encounter: 02/03/17 Time of Encounter: 09:00 Assessment and Plan (1) Chest pain Current Visit: Yes Status: Acute Presented with chest pain, troponin negative, no ischemic ECG changes. Recent negative stress test. Unstable angina s/p C with PCI with BMS to mLAD. BMS utilized due to upcoming urologic procedure. Chest pain free upon exam. Patient will need to follow-up with [facility] in the outpatient setting, may required staged procedure in future s/p urologic procedure. Post PCI discharge instructions discussed at length with patient and family. Recommend uninterrupted DAPT (asa + plavix) for at least 6 weeks--pt. verbalized understanding Continue nitrates, betablocker, and ARB. He has hx of allergy/intolerance to statin therapy. No further inpatient recommendations, Cardiology will sign-off. Will coordinate appt. in the outpatient setting. Qualifiers: Chest pain type: unspecified Qualified Code(s): R07.9 - Chest pain, unspecified Discussion w patient/family: The assessment and plan as outlined above was discussed with the patient and/or family members who expressed understanding and agreement. All questions were answered. Thank you for involving us in the care of your patient. Please call with any questions. The patient was discussed and reviewed with Dr. Funes who agrees with plan as stated above. Cardiology will sign-off, please call with questions. Subjective Principal diagnosis: Unstable angina Interval history: Seen and examined, he has no complaints upon exam this morning. Reports "light" episode of chest discomfort last night, lasted only seconds. Has been up and ambulating in room without symptoms. No issues with right groin LHC access site. Objective Vital Signs, Last 4 Hours Temp Pulse Resp BP Pulse Ox 02/03/17 08:17 95 02/03/17 07:50 61 20 130/62 95 02/03/17 07:08 97.9 F 68 18 180/79 95 General: Conversant, No Apparent Distress HEENT: Atraumatic, Normocephaly, Mucus Membranes Moist Cardiac: Reg Rate and Rhythm, Normal S1 and S2 Lungs: Normal Breath Sounds Neuro: Alert and responsive Abdomen: Soft Skin: No rashes noted on visualized skin Musculoskeletal: No Chest Wall Tenderness Extremities: No Edema, Normal Pulses Other: Right groin: site soft, dressing clean dry and intact. No hematoma, oozing, or ecchymosis noted at site. +2 DP/PT pulses bilaterally. Results 02/03/17 01:06 02/03/17 01:06 Lab Results 02/02/17 02/03/17 02/03/17 08:45 01:06 01:06 WBC 5.2 Hgb 10.0 L Hct 28.9 L Plt Count 133 L Sodium 138 Potassium 3.9 Chloride 107 Carbon Dioxide 23 BUN 20 Creatinine 1.22 Glucose 152 H Calcium 8.3 L Troponin I 0.01 Active Medications Albuterol Sulfate (Albuterol Inhaler) 2 puff IH [id number] PRN PRN Reason: Shortness Of Breath/Wheezing Stop: 08/04/17 18:38 Aspirin (Aspirin Ec) 81 mg PO DAILY [facility] Stop: 08/04/17 09:01 Last Admin: 02/03/17 07:55 Dose: 81 mg Clopidogrel Bisulfate (Plavix) 75 mg PO DAILY [facility] Stop: 08/04/17 09:01 Last Admin: 02/03/17 07:55 Dose: 75 mg HCTZ/Losartan Potassium (Hyzaar 50/12.5) 2 each PO DAILY [facility] Stop: 08/04/17 09:01 Last Admin: 02/03/17 07:55 Dose: 2 each Heparin Sodium (Porcine) (Heparin) 5,000 unit SQ Q12HCO [facility] Stop: 08/04/17 06:01 Last Admin: 02/03/17 04:55 Dose: 5,000 unit Sodium Chloride (0.9 % Sodium Chloride) 1,000 mls @ 50 mls/hr IVC .Q20H [facility] Stop: 08/04/17 09:46 Last Admin: 02/03/17 04:56 Dose: 50 mls/hr Isosorbide Mononitrate (Imdur) 60 mg PO DAILY [facility] Stop: 08/04/17 09:01 Last Admin: 02/03/17 07:55 Dose: 60 mg Metoprolol Succinate (Toprol Xl) 25 mg PO DAILY [facility] Stop: 08/04/17 09:01 Last Admin: 02/03/17 07:55 Dose: 25 mg Morphine Sulfate (Morphine Sulfate) 2 mg IVP Q4HR PRN PRN Reason: Severe Pain (7-10) Stop: 08/04/17 01:04 Naloxone HCl (Narcan) 0.4 mg IVP Q2MIN PRN PRN Reason: Opioid Reversal Stop: 08/04/17 01:04 Nitroglycerin (Nitroglycerin) 0.4 mg SL Q5M PRN PRN Reason: Chest Pain Stop: 08/04/17 01:06 - Imaging and Cardiology Cardiac cath: report reviewed - EKG Interpretation EKG results cardiology: personally reviewed Consult Discharge Plan - Plan Referrals: Wen Baires MD [Primary Care Provider] -
[2017-02-03 15:13] VITALS: BP 157/70
--- NOTE | 2017-02-03 15:41 | Discharge Summary ---
Date of Encounter: 02/03/17 Time of Encounter: 15:39 - Discharge Diagnosis (1) Chest pain Priority: Primary Status: Acute Qualifiers: Chest pain type: unspecified Qualified Code(s): R07.9 - Chest pain, unspecified (2) DVT prophylaxis Priority: Secondary Status: Chronic (3) HTN (hypertension) Priority: Secondary Status: Chronic Qualifiers: Hypertension type: essential hypertension Qualified Code(s): I10 - Essential (primary) hypertension (4) HLD (hyperlipidemia) Priority: Secondary Status: Chronic Qualifiers: Hyperlipidemia type: pure hypercholesterolemia Qualified Code(s): E78.00 - Pure hypercholesterolemia, unspecified; E78.0 - Pure hypercholesterolemia (5) Diabetes Priority: Secondary Status: Chronic Qualifiers: Diabetes mellitus type: type 2 Diabetes mellitus complication status: with neurologic complications Diabetes mellitus complication detail: with unspecified neuropathy 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 transplanted heart: [place] heart Associated angina: angina presence unspecified Qualified Code(s): I25.10 - Atherosclerotic heart disease of [place] coronary artery without angina pectoris - Discharge Medications Home Medications: Albuterol Sulfate [Ventolin Hfa] 2 puff IH Q4H PRN 01/28/17 [History] Aspirin Enteric Coated [Aspirin EC] 81 mg PO DAILY 01/28/17 [History] Clopidogrel [Plavix] 75 mg PO DAILY 01/28/17 [History] Cyanocobalamin (Vitamin B-12) [Vitamin B12] 2,000 mcg PO DAILY 01/28/17 [History ] Flaxseed Oil [Sleepy Eye-3 Flaxseed Oil] 1,000 mg PO DAILY 01/28/17 [History] Isosorbide MONOnitrate (24 HR) [Imdur] 60 mg PO DAILY 01/28/17 [History] Losartan/Hydrochlorothiazide [Hyzaar 100-12.5 Tablet] 1 tab PO DAILY 01/28/17 [ History] Meclizine HCl [Verticalm] 25 mg PO DAILY PRN 01/28/17 [History] Metoprolol XL (24 HR) Succ [Toprol Xl] 25 mg PO DAILY 01/28/17 [History] Nitroglycerin [Nitrostat] 0.4 mg SL Q5M PRN 01/28/17 [History] Sleepy Eye-3/Dha/Epa/Fish Oil [Fish Oil 1,360 mg Softgel] 1 cap PO DAILY 01/28/17 [ History] Potassium Chloride [K-Tab ER] 10 meq PO BID 01/28/17 [History] Saw/Vit E/Sod [place]/Lyc/Beta/Pyg [Prostate Health Caplet] 1 tab PO DAILY 01/28/17 [History] Vit A/C/E AC/Znox/Cupric Oxide [Eye Vitamin-Minerals Tablet] 1 tab PO DAILY 10/12 [History] glipiZIDE [Glucotrol] 5 mg PO BIDWM 01/28/17 [History] Furosemide [Lasix] 20 mg PO DAILY 01/30/17 [History] Allergies/Adverse Reactions: Allergies celecoxib [From Celebrex] Allergy (Unknown, Verified 02/02/17 12:56) See Comments Listed as an allergy on patient's ECW codeine Allergy (Unknown, Verified 02/02/17 12:56) See Comments Listed as an allergy on patient's ECW propoxyphene Allergy (Unknown, Verified 02/02/17 12:56) See Comments Listed as an allergy on patient's ECW Sulfa (Sulfonamide Antibiotics) Allergy (Unknown, Verified 02/02/17 12:56) See Comments Listed as an allergy on patient's ECW Ktcjcul-Bqs-Yzc Reductase Inhibitor [Statins] Adverse Reaction (Verified 12:56) Muscle Pain Procedures/tests Complete & Pending: Procedures Performed prior 72 hours Category Date Time Status Left Heart Cath [CL Cardiac Catheterization] [CL] 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 Call Completed: Yes 02/02/17 13:01 Consult to Cardiac Rehabilitation-Phase1 [CONS] Routine Comment: Reason for Consult: CAD s/p PCI Call Completed: Yes Discharging clinician: Rohan Mancilla Anticipated date of discharge: 02/03/17 - Patient Status Disposition: Home, Self-Care Condition: Good - Discharge Instructions Follow Up With: Wen Baires MD [Primary Care Provider] - - Diet and Activity Activity: resume usual activities as tolerated Diet: advance to your usual diet, diabetic diet, low fat, low cholesterol, low salt diet Hospital course: Mr. Dudley is a 81 year old male with concerns of chills, generalized malaise, weakness and intermittent chest pressure. Patient has been evaluated multiple times over the past week for syncope and chest pain. HE was admitted twice this past week. On his last admission to the hospital, he presented wwith syncopal episode, he had possible ST elevations of the inferior leads, he was almost taken for emergent heart catheterization however his symptoms improved and he did not have elevation of his troponins. He was offered a left-sided cardiac catheterization for diagnostic and possible therapeutic benefit however after discussion of the risks and benefits with cardiology , the patient declined and wished to return home. Patient states his symptoms returned within 24 hours after leaving the hospital. HE says he was feeling very cold and was shaking during the day. This time he went to cardiac catheter and noted to have three-vessel disease and underwent stent placement. He is on aspirin and Plavix and will follow with cardiology. - Time Spent with Patient Total time spent providing and/or coordinating discharge services: Greater than 30 minutes - Constitutional Vitals: Temp Pulse Resp BP Pulse Ox 98.0 F 56 16 157/70 95 02/03/17 15:12 02/03/17 15:12 02/03/17 15:12 02/03/17 15:12 02/03/17 15:12 General appearance: Present: A&O X 3, no acute distress - Head Head exam: Present: atraumatic, normocephalic - Eye Eye exam: Present: PERRL, conjuntiva pink, sclera anicteric Pupils: Present: PERRL - Neck Neck exam general surgery: Present: supple, trachea midline. Absent: lymphadenopathy - Respiratory Respiratory exam: Present: CTAB. Absent: accessory muscle use, rales, rhonchi, wheezes - Cardiovascular Cardiovascular exam: Present: RRR, +S1, +S2. Absent: diastolic murmur, gallop, rubs, systolic murmur - GI/Abdominal GI/Abdominal exam: Present: normal bowel sounds, soft, no peritoneal signs. Absent: distended, tenderness - Extremities Exam Extremities exam: Present: warm, radial pulses palpable and symetrical. Absent : calf tenderness, cyanotic, pedal edema - Neurological Exam Neurological exam: Present: CN II-XII intact, oriented X3, no focal deficits. Absent: pronater drift, facial droop, speech deficit - Skin Skin exam: Present: dry, intact
--- NOTE | 2017-02-04 09:46 | Electrocardiograph Report ---
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
--- NOTE | 2017-02-04 12:04 | Electrocardiograph Report ---
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
== END 2017-02-03 17:20 | disposition home or self-care (01) ==
LOC: EMEROO 16:57 → 3BNU 16:57 → 2NNU 02-02 12:54
PROVIDERS: ADMIT Internal Medicine Endocrinology, Diabetes & Metabolism; ATTEND Registered Nurse